=== PATIENT | female | born 1950 | race Caucasian/White ===

== ENCOUNTER 2017-01-24 14:52 | Emergency (ER) | payer OTHER, MEDICAID ==
[2017-01-24 15:09] VITALS: BP 142/71; BMI 29.9
--- NOTE | 2017-01-24 16:53 | DR.GENAD ---
HPI - PCP Primary Care Physician: [facility] IN [facility] - Complaint/Symptoms Chief Complaint Doctors Comments: Patient states that she has a history of cluster headaches. Her headache has been ongoing for four days. She also admits to midsternal pain radiating to left shoulder. Chief Complaint:: NAUSEA, HEADACHE AND EPIGASTRIC PAIN Self Treatment fo Chief Complaint: TYLENOL FOR THOMAS, NITRO FOR CP,PHENERGAN FOR NAUSEA BUT NONE OF THEM STAYED DOWN - Source History Provided: Patient - Mode of Arrival Mode of Arrival: Ambulatory - Timing Onset of Chief Complaint: 01/24/17 PMH - PMH Past Medical History: Yes Past Medical History: CHF, Hypertension Past Surgical History: Yes Surgical History: Appendectomy, Cholecystectomy, Ortho Surgery Past Surgical History Comment: PACE MAKER - Family History History of Family Medical Conditions: Yes Family Medical History: [place], Coronary Artery Disease - Social History Type of Tobacco Use: Cigarettes How many years tobacco product used: 30 Does any household member use tobacco: Yes Alcohol Use: None Do you use any recreational Drugs:: No Lives With: Family Lives Where: Home - infectious screening In the last 2 months have you had wt loss of >10#?: NO Have you had fever, night sweats or hemotysis?: No Have you traveled outside the country in the last 6 months?: No Isolation: Standard ROS - Review of Systems Eyes: No Symptoms Reported ENTM: No Symptoms Reported Respiratoy: No Symptoms Reported Cardiovascular: No Symptoms Reported Gastrointestinal/Abdominal: No Symptoms Reported Genitourinary: No Symptoms Reported Neurological: No Symptoms Reported Musculoskeletal: No Symptoms Reported Integumentary: No Symptoms Reported Hematologic/Lymphatic: No Symptoms Reported Endocrine: No Symptoms Reported Psychiatric: No Symptoms Reported All Other Systems: Reviewed and Negative PE - Vital Signs Vitals: Temperature 99 F Pulse Rate 75 Respiratory Rate 20 Blood Pressure 142/71 O2 Sat by Pulse Oximetry 98 - General Limitations: No Limitations General Appearance: Alert, In No Apparent Distress - Eyes Eye exam: Normal Appearance, PERRL, EOMI - ENT ENT Exam: Normal Exam External Ear Exam: Normal External Inspection TM/Canal Exam: Bilateral Normal Nose Exam: Normal Nose Exam Mouth Exam: Normal Inspection Throat Exam: Normal Inspection - Neck Neck Exam: Normal Inspection - Chest Chest Inspection: Normal Inspection, Symmetric Chest Wall Rise - Respiratory Respiratory Exam: Normal Lung Sounds Bilat Respiratory Exam: Bilateral Clear to Auscultation - Cardiovascular Cardiovascular Exam: Regular Rate, Normal Rhythm - Abdominal Exam Abdominal Exam: Normal Inspection, Normal Bowel Sounds Abdominal Tenderness: negative: RUQ, RLQ, LUQ, LLQ, Epigastrium, Suprapubic, Diffuse, Mild, Moderate, Severe, Other - Extremities Extremities Exam: Normal Inspection, Full ROM - Back Back Exam: Normal Inspection - Skin Skin Exam: Warm, Dry, Intact Course - Treatment Treatment: Morphine, oxygen - Reevaluation 1st: Improved ROR - Labs Reviewed Result Diagrams: 01/24/17 17:00 01/24/17 17:00 Laboratory: WBC 4.3 X10^3/uL (3.6-10.0) 01/24/17 17:00 RBC 4.15 X10^6/uL (3.5-5.4) 01/24/17 17:00 Hgb 12.2 g/dL (12.0-16.0) 01/24/17 17:00 Hct 36.1 % (36.0-47.0) 01/24/17 17:00 MCV 87.0 fL (80.0-100.0) 01/24/17 17:00 MCH 29.5 pg (27.0-34.0) 01/24/17 17:00 MCHC 34.0 g/dL (33.0-35.0) 01/24/17 17:00 RDW 13.6 % (11.6-16.5) 01/24/17 17:00 Plt Count 141 X10^3/uL (150.0-450.0) L 01/24/17 17:00 MPV 8.1 fL (7.4-11.0) 01/24/17 17:00 Neut % 59.4 % (42.0-75.0) 01/24/17 17:00 Lymph % 29.3 % (21.0-51.0) 01/24/17 17:00 [place] % 5.0 % (0.0-13.0) 01/24/17 17:00 Eos % 5.0 % (0.9-2.9) H 01/24/17 17:00 Baso % 1.3 % (0.2-1.0) H 01/24/17 17:00 Neut # 2.6 x10^3/uL (2.2-4.8) 01/24/17 17:00 Lymph # 1.3 X10^3/uL (1.3-2.9) 01/24/17 17:00 [place] # 0.2 x10^3/uL (0.3-0.8) L 01/24/17 17:00 Eos # 0.2 x10^3/uL (0.0-0.2) 01/24/17 17:00 Baso # 0.1 X10^3/uL (0.0-0.1) 01/24/17 17:00 Absolute Nucleated RBC 0.0 /100WBC 01/24/17 17:00 INR Target Range - 01/24/17 17:00 INR 1.40 (0.8-1.3) H 01/24/17 17:00 Sodium 142 mmol/L (136-145) 01/24/17 17:00 Corrected Sodium TNP 01/24/17 17:00 Potassium 3.4 mmol/L (3.5-5.1) L 01/24/17 17:00 Chloride 104 mmol/L (98-107) 01/24/17 17:00 Carbon Dioxide 31.0 mmol/L (21-32) 01/24/17 17:00 BUN 16 mg/dL (7-18) 01/24/17 17:00 Creatinine 1.21 mg/dL (0.55-1.02) H 01/24/17 17:00 Est GFR (MDRD) Af Amer 57 (>60) L 01/24/17 17:00 Est GFR (MDRD) Non-Af 47 (>60) L 01/24/17 17:00 Glucose 95 mg/dL (65-99) 01/24/17 17:00 Calcium 8.7 mg/dL (8.5-10.1) 01/24/17 17:00 Corrected Calcium TNP 01/24/17 17:00 Phosphorus 4.4 mg/dL (2.6-4.7) 01/24/17 17:00 Magnesium 1.9 mg/dL (1.7-2.9) 01/24/17 17:00 Total Bilirubin 0.30 mg/dL (0.2-1.0) 01/24/17 17:00 AST 20 Units/L (15-37) 01/24/17 17:00 ALT 24 Units/L (12-78) 01/24/17 17:00 Alkaline Phosphatase 84 Units/L (46-116) 01/24/17 17:00 Creatine Kinase 63 Units/L (26-192) 01/24/17 17:00 CK-MB (CK-2) < 1.0 ng/mL (0-4.0) 01/24/17 17:00 CK/CKMB % Calc 1.6 % (<4) 01/24/17 17:00 Troponin I 0.05 ng/mL (0-1.5) 01/24/17 17:00 Total Protein 7.5 g/dL (6.4-8.2) 01/24/17 17:00 Albumin 3.6 g/dL (3.4-5.0) 01/24/17 17:00 Globulin 3.9 g/dL (2.5-4.5) 01/24/17 17:00 Albumin/Globulin Ratio 0.9 Ratio (1.1-2.1) L 01/24/17 17:00 - EKG Rhythm: Paced - Diagnosis Discharge Problem: cluster headaceh Chest pain Qualifiers: Chest pain type: unspecified Qualified Code(s): R07.9 - Chest pain, unspecified - Discharge Plan Condition: Stable - Follow ups/Referrals Follow ups/Referrals: NFD,None [Primary Care Provider] - 3 days - Instructions
[2017-01-24] MEDS ORDERED: NITROSTAT SL PRN (16:56)
[2017-01-24] MEDS ORDERED: ASPIRIN ONE (16:59)
[2017-01-24] MEDS ORDERED: ASPIRIN PO SCH (17:00)
[2017-01-24 17:11] LABS: BASOPHILS # (AUTO) 0.1 X10^3/uL (0.0-0.1); BASOPHILS % (AUTO) 1.3 % (0.2-1.0); EOSINOPHILS # (AUTO) 0.2 x10^3/uL (0.0-0.2); HEMATOCRIT 36.1 % (36.0-47.0); HEMOGLOBIN 12.2 g/dL (12.0-16.0); LYMPHOCYTES # (AUTO) 1.3 X10^3/uL (1.3-2.9); LYMPHOCYTES % (AUTO) 29.3 % (21.0-51.0); MEAN CORPUSCULAR HEMOGLOBIN 29.5 pg (27.0-34.0); MEAN PLATELET VOLUME 8.1 fL (7.4-11.0); MONOCYTES # (AUTO) 0.2 x10^3/uL (0.3-0.8); NEUTROPHILS # (AUTO) 2.6 x10^3/uL (2.2-4.8); NEUTROPHILS % (AUTO) 59.4 % (42.0-75.0); PLATELET COUNT 141 X10^3/uL (150.0-450.0); RED BLOOD COUNT 4.15 X10^6/uL (3.5-5.4); RED CELL DISTRIBUTION WIDTH 13.6 % (11.6-16.5); WHITE BLOOD COUNT 4.3 X10^3/uL (3.6-10.0)
[2017-01-24 17:27] LABS: BLOOD UREA NITROGEN 16 mg/dL (7-18); CALCIUM 8.7 mg/dL (8.5-10.1); CHLORIDE 104 mmol/L (98-107); CREATININE 1.21 mg/dL (0.55-1.02); GLUCOSE 95 mg/dL (65-99); SODIUM 142 mmol/L (136-145); TROPONIN I 0.05 ng/mL (0-1.5); eGFR BLACK RACES 57 (>60); eGFR NON BLACK RACES 47 (>60)
[2017-01-24 17:31] LABS: ALANINE AMINOTRANSFERASE 24 Units/L (12-78); ALBUMIN 3.6 g/dL (3.4-5.0); ALKALINE PHOSPHATASE 84 Units/L (46-116); ASPARTATE AMINO TRANSFERASE 20 Units/L (15-37); CKMB % 1.6 % (<4); CREATINE KINASE 63 Units/L (26-192); CREATINE KINASE MB < 1.0 ng/mL (0-4.0); MAGNESIUM 1.9 mg/dL (1.7-2.9); PHOSPHORUS 4.4 mg/dL (2.6-4.7); TOTAL PROTEIN 7.5 g/dL (6.4-8.2)
[2017-01-24] MEDS ORDERED: MORPHINE SULFATE INJ 4 MG IVP ONE (17:40)
[2017-01-24] MEDS ORDERED: MORPHINE SULFATE INJ 4 MG ONE (17:45)
[2017-01-24] MEDS ORDERED: MORPHINE SULFATE INJ 2 MG IVP ONE (18:27)
[2017-01-24] MEDS ORDERED: MORPHINE SULFATE INJ 2 MG ONE (18:32)
[2017-01-24] MEDS ORDERED: ZOFRAN INJ 4 MG VIAL ONE (18:32)
[2017-01-24] MEDS ORDERED: ZOFRAN INJ 4 MG VIAL IVP ONE (18:38)
== END 2017-01-24 19:37 | disposition home or self-care (01) ==
LOC: ER 15:09
DX: R07.89 Other chest pain (principal); G44.009 Cluster headache syndrome, unspecified, not intractable
CPT/HCPCS: 36415; 80053; 82550; 82553; 83735; 84100; 84484; 85025; 85610; 93005; 93010; 96365; 96374; 96375; 99283; A4222; J2270; J2405

== ENCOUNTER 2017-01-30 13:10 | Emergency (ER) | payer OTHER, MEDICAID ==
[2017-01-30 13:16] VITALS: BP 142/68; BMI 29.9
[2017-01-30] MEDS ORDERED: MORPHINE SULFATE INJ 4 MG IM ONE (13:46)
[2017-01-30] MEDS ORDERED: ZOFRAN INJ 4 MG VIAL IM ONE (13:46)
--- NOTE | 2017-01-30 13:55 | DR.GENAD ---
HPI - PCP Primary Care Physician: ALISSA - Complaint/Symptoms Chief Complaint:: PT C/O BAD HEADACHES WITH INTERMITTEN CHEST PAIN. PT ALSO STATES SHE HAS BEEN HAVING NAUSEA. PT STATES SHE WAS JUST HERE FOR THE SAME REASON - Source History Provided: Patient - Mode of Arrival Mode of Arrival: Ambulatory - Timing Onset of Chief Complaint: 01/30/17 PMH - PMH Past Medical History: Yes Past Medical History: CHF, Headaches, Hypertension Past Surgical History: Yes Surgical History: Appendectomy, Cholecystectomy, Ortho Surgery - Family History History of Family Medical Conditions: Yes Family Medical History: [place], Coronary Artery Disease - Social History Does patient currently use any type of tobacco product: Yes Have you used tobacco products in the last 12 months: Yes Type of Tobacco Use: Cigarettes Does any household member use tobacco: Yes Alcohol Use: None Do you use any recreational Drugs:: No Lives With: Family Lives Where: Home - infectious screening In the last 2 months have you had wt loss of >10#?: NO Have you had fever, night sweats or hemotysis?: No Have you traveled outside the country in the last 6 months?: No Isolation: Standard PE - Vital Signs Vitals: Temperature 98.2 F Pulse Rate 69 Respiratory Rate 18 Blood Pressure 142/68 O2 Sat by Pulse Oximetry 99 - Discharge Plan Condition: Stable Prescriptions: Promethazine HCl [Phenergan Supp 25 mg] 25 mg [place] Q8H PRN #10 supp.rect PRN Reason: Nausea/Vomiting - Follow ups/Referrals Follow ups/Referrals: Radha ESCOBARc [Primary Care Provider] - 3 days - Instructions Instructions: Cluster Headache, [id number] Additional Instructions: RETURN TO ED IF WORSE. CONTINUE MEDS AT HOME.
[2017-01-30] MEDS ORDERED: ZOFRAN INJ 4 MG VIAL ONE (13:58)
[2017-01-30] MEDS ORDERED: MORPHINE SULFATE INJ 4 MG ONE (13:58)
== END 2017-01-30 14:39 | disposition home or self-care (01) ==
LOC: ER 13:23
DX: R51 Headache (principal)
CPT/HCPCS: 96372; 99282; J2270; J2405

== ENCOUNTER 2017-02-07 13:55 | Inpatient (IN) | payer OTHER, MEDICAID ==
[2017-02-07 14:03] VITALS: BMI 30.7
--- NOTE | 2017-02-07 16:46 | DR.URIAD ---
HPI - Time Seen Time seen: 16:42 - PCP Primary Care Physician: PEDRO LUNA PHYSICIAN - HPI Comment HPI Comment: cough - Complaint Chief Complaint Doctors Comments: Cough x 2-3 days. She dyspnea also. She denies fever of chills. She had quit smoking 1 month ago. Chief Complaint:: COUGH, SOB - Reviewed Nurses Notes Reviewed: Yes - Source History Provided: Patient - Mode of Arrival Mode of Arrival: Ambulatory - Timing Onset of Chief Complaint: 02/04/17 - Context Recent Treated Infections: None History of Respiratory: None - Quality Quality of Cough: Nonproductive Shortness of Breath: Moderate - Associated Signs and Symptoms Other Signs and Symptoms: Cough, Nausea, Vomitting PMH - PMH Past Medical History: Yes Past Medical History: Arthritis, CHF, Hypertension, Hypothyroidism Past Surgical History: Yes Surgical History: Appendectomy, Cholecystectomy Past Surgical History Comment: KNEE SURGERY - Family History History of Family Medical Conditions: No Family Medical History: [place], Coronary Artery Disease - Social History Does patient currently use any type of tobacco product: No Have you used tobacco products in the last 12 months: Yes (quit 1 month ago) Type of Tobacco Use: Cigarettes How many years tobacco product used: 30 Does any household member use tobacco: No Alcohol Use: None Do you use any recreational Drugs:: No Lives With: Family Lives Where: Home - infectious screening In the last 2 months have you had wt loss of >10#?: NO Have you had fever, night sweats or hemotysis?: No Have you traveled outside the country in the last 6 months?: No Isolation: Standard ROS - Review of Systems Constitutional: No Symptoms Reported Eyes: No Symptoms Reported ENTM: No Symptoms Reported Respiratoy: No Symptoms Reported, Non-Productive Cough, Short of Breath Cardiovascular: No Symptoms Reported, Edema Gastrointestinal/Abdominal: See HPI, Nausea, Vomiting Genitourinary: No Symptoms Reported Neurological: No Symptoms Reported Musculoskeletal: No Symptoms Reported Integumentary: No Symptoms Reported Hematologic/Lymphatic: No Symptoms Reported Endocrine: No Symptoms Reported Psychiatric: No Symptoms Reported All Other Systems: Reviewed and Negative PE - Vital Signs Vitals: Temperature 98.9 F Pulse Rate [Apical] 97 Pulse Rate 74 Respiratory Rate 16 Blood Pressure [Left Arm] 138/72 Blood Pressure 139/61 O2 Sat by Pulse Oximetry 97 - General Limitations: No Limitations General Appearance: Alert, In No Apparent Distress - Head Head Exam: Normal Inspection - Eyes Eye exam: Normal Appearance - ENT ENT Exam: Normal Exam External Ear Exam: Normal External Inspection TM/Canal Exam: Bilateral Normal Nose Exam: Normal Nose Exam Nasal Speculum Exam: Bilateral Normal Mouth Exam: Normal Inspection Throat Exam: Normal Inspection - Neck Neck Exam: Normal Inspection - Chest Chest Inspection: Normal Inspection - Respiratory Respiratory Exam: Bilateral Rhonchi, Bilateral Crackles - Cardiovascular Cardiovascular Exam: Regular Rate, Normal Rhythm - Abdominal Exam Abdominal Exam: Normal Inspection, Normal Bowel Sounds, Soft - Extremeties Extremities Exam: Normal Inspection - Back Back Exam: Normal Inspection - Neurologic Neurological Exam: Alert, Oriented X3 - Psychiatric Psychiatric Exam: Normal Affect, Normal Mood - Skin Skin Exam: Warm, Dry, Intact, Normal Color ROR - Labs Reviewed Result Diagrams: 02/07/17 16:34 02/07/17 16:34 Laboratory: WBC 3.9 X10^3/uL (3.6-10.0) 02/07/17 16:34 RBC 4.31 X10^6/uL (3.5-5.4) 02/07/17 16:34 Hgb 12.8 g/dL (12.0-16.0) 02/07/17 16:34 Hct 37.0 % (36.0-47.0) 02/07/17 16:34 MCV 85.8 fL (80.0-100.0) 02/07/17 16:34 MCH 29.8 pg (27.0-34.0) 02/07/17 16:34 MCHC 34.7 g/dL (33.0-35.0) 02/07/17 16:34 RDW 13.9 % (11.6-16.5) 02/07/17 16:34 Plt Count 141 X10^3/uL (150.0-450.0) L 02/07/17 16:34 MPV 8.3 fL (7.4-11.0) 02/07/17 16:34 Neut % 51.8 % (42.0-75.0) 02/07/17 16:34 Lymph % 37.3 % (21.0-51.0) 02/07/17 16:34 [place] % 4.4 % (0.0-13.0) 02/07/17 16:34 Eos % 5.2 % (0.9-2.9) H 02/07/17 16:34 Baso % 1.3 % (0.2-1.0) H 02/07/17 16:34 Neut # 2.0 x10^3/uL (2.2-4.8) L 02/07/17 16:34 Lymph # 1.5 X10^3/uL (1.3-2.9) 02/07/17 16:34 [place] # 0.2 x10^3/uL (0.3-0.8) L 02/07/17 16:34 Eos # 0.2 x10^3/uL (0.0-0.2) 02/07/17 16:34 Baso # 0.1 X10^3/uL (0.0-0.1) 02/07/17 16:34 Absolute Nucleated RBC 0.0 /100WBC 02/07/17 16:34 Sample Site [facility] 02/07/17 19:52 ABG pH 7.480 (7.35-7.45) H 02/07/17 19:52 ABG pCO2 34.0 mmHg (35.0-45.0) L 02/07/17 19:52 ABG pO2 84.0 mmHg (80.0-100.0) 02/07/17 19:52 ABG HCO3 25.3 mmol/L (22-26) 02/07/17 19:52 ABG O2 Saturation 97.0 % (90-100) 02/07/17 19:52 ABG Base Excess 2.1 mmol/L (-2.0-2.0) H 02/07/17 19:52 [place] Test Na 02/07/17 19:52 A-a Gradient 73.0 mmHg 02/07/17 19:52 FiO2 28.000 02/07/17 19:52 Blood Gas Comments [place] Maria abg well-mtf 02/07/17 19:52 Sodium 143 mmol/L (136-145) 02/07/17 16:34 Corrected Sodium TNP 02/07/17 16:34 Potassium 3.5 mmol/L (3.5-5.1) 02/07/17 16:34 Chloride 105 mmol/L (98-107) 02/07/17 16:34 Carbon Dioxide 30.8 mmol/L (21-32) 02/07/17 16:34 BUN 13 mg/dL (7-18) 02/07/17 16:34 Creatinine 1.10 mg/dL (0.55-1.02) H 02/07/17 16:34 Est GFR (MDRD) Af Amer > 60 (>60) 02/07/17 16:34 Est GFR (MDRD) Non-Af 52 (>60) L 02/07/17 16:34 Glucose 101 mg/dL (65-99) H 02/07/17 16:34 Calcium 8.9 mg/dL (8.5-10.1) 02/07/17 16:34 Corrected Calcium TNP 02/07/17 16:34 Total Bilirubin 0.30 mg/dL (0.2-1.0) 02/07/17 16:34 AST 23 Units/L (15-37) 02/07/17 16:34 ALT 25 Units/L (12-78) 02/07/17 16:34 Alkaline Phosphatase 78 Units/L (46-116) 02/07/17 16:34 Total Protein 7.7 g/dL (6.4-8.2) 02/07/17 16:34 Albumin 3.7 g/dL (3.4-5.0) 02/07/17 16:34 Globulin 4.0 g/dL (2.5-4.5) 02/07/17 16:34 Albumin/Globulin Ratio 0.9 Ratio (1.1-2.1) L 02/07/17 16:34 Streptococcus Screen Negative (NEGATIVE) 02/07/17 16:28 - Other Results Comments: ABG on 2L N/C: 7.480/34.0/84.0/97% - XRAY XRAY Interpreted by: Radiologist (A PM, subcutaneously infraclavicularly (Left) . ), Both (A PPM, Lt. infraclavicular region) - EKG Rate: 65 [place]: Normal Rhythm: Paced Block: None - Diagnosis Discharge Problem: COPD exacerbation, Syncopal episodes, Thrombocytopenia - Discharge Plan Disposition: ADMITTED INPATIENT Condition: Stable - Follow ups/Referrals Follow ups/Referrals: NFD,None [Primary Care Provider] - 3 days - Instructions Instructions: Syncope, [id number]
[2017-02-07] MEDS ORDERED: DUONEB 0.5 MG/3 MG NEB ONE (16:50)
[2017-02-07] MEDS ORDERED: SOLU-Medrol 125 MG VIAL IVP ONE (16:50)
[2017-02-07] MEDS ORDERED: ZITHROMAX INJ 500 MG VIAL 500 MG in NS 250 ML IV 250 ML IV SCH (16:51)
[2017-02-07 16:53] LABS: BASOPHILS # (AUTO) 0.1 X10^3/uL (0.0-0.1); BASOPHILS % (AUTO) 1.3 % (0.2-1.0); EOSINOPHILS # (AUTO) 0.2 x10^3/uL (0.0-0.2); EOSINOPHILS % (AUTO) 5.2 % (0.9-2.9); HEMOGLOBIN 12.8 g/dL (12.0-16.0); LYMPHOCYTES # (AUTO) 1.5 X10^3/uL (1.3-2.9); LYMPHOCYTES % (AUTO) 37.3 % (21.0-51.0); MEAN CORPUSCULAR HEMOGLOBIN 29.8 pg (27.0-34.0); MEAN CORPUSCULAR HGB CONC 34.7 g/dL (33.0-35.0); MEAN CORPUSCULAR VOLUME 85.8 fL (80.0-100.0); MEAN PLATELET VOLUME 8.3 fL (7.4-11.0); MONOCYTES # (AUTO) 0.2 x10^3/uL (0.3-0.8); MONOCYTES % (AUTO) 4.4 % (0.0-13.0); NEUTROPHILS % (AUTO) 51.8 % (42.0-75.0); PLATELET COUNT 141 X10^3/uL (150.0-450.0); RED BLOOD COUNT 4.31 X10^6/uL (3.5-5.4); RED CELL DISTRIBUTION WIDTH 13.9 % (11.6-16.5); WHITE BLOOD COUNT 3.9 X10^3/uL (3.6-10.0)
[2017-02-07 17:06] LABS: ALANINE AMINOTRANSFERASE 25 Units/L (12-78); ALBUMIN 3.7 g/dL (3.4-5.0); ALKALINE PHOSPHATASE 78 Units/L (46-116); ASPARTATE AMINO TRANSFERASE 23 Units/L (15-37); BLOOD UREA NITROGEN 13 mg/dL (7-18); CALCIUM 8.9 mg/dL (8.5-10.1); CARBON DIOXIDE 30.8 mmol/L (21-32); CHLORIDE 105 mmol/L (98-107); SODIUM 143 mmol/L (136-145); TOTAL PROTEIN 7.7 g/dL (6.4-8.2); eGFR BLACK RACES > 60 (>60); eGFR NON BLACK RACES 52 (>60)
[2017-02-07] MEDS ORDERED: ZITHROMAX INJ 500 MG VIAL IV ONE (17:14)
[2017-02-07] MEDS ORDERED: SOLU-Medrol 125 MG VIAL ONE (17:14)
[2017-02-07] MEDS ORDERED: NS 250 ML IV 250 ML IV ONE (17:16)
--- NOTE | 2017-02-07 17:16 | RAD ---
HISTORY: Cough. Study: Single-view chest. Comparison: None. Findings: The trachea is midline. There is a dual lead cardiac pacing device on the left. The cardiac silhouett e is within normal limits. The lungs are clear without focal consolidation, pleural effusion or pneum othorax. The bony thorax is grossly unremarkable. IMPRESSION: No acute cardiopulmonary disease. Reported By:
[2017-02-07 20:01] LABS: ABG BASE EXCESS 2.1 mmol/L (-2.0-2.0); ABG HCO3 25.3 mmol/L (22-26)
[2017-02-07] MEDS ORDERED: TORADOL 30 MG VIAL IVP ONE ×2 (21:13)
[2017-02-07] MEDS ORDERED: TORADOL 30 MG VIAL ONE (21:16)
[2017-02-07] MEDS: NS 1000 ML 1,000 ML IV SCH (21:18)
[2017-02-07] MEDS: SOLU-Medrol 40 MG VIAL IVP SCH (22:12)
[2017-02-07] MEDS: ROBITUSSIN DM PO PRN (22:32)
[2017-02-07] MEDS: SINGULAIR TAB 10 MG PO SCH (22:33)
[2017-02-07] MEDS: NORCO 5/325 MG TAB PO PRN (22:33)
[2017-02-07] MEDS: MORPHINE SULFATE INJ 2 MG INJ IVP PRN (23:57)
[2017-02-08] MEDS: DUONEB 0.5 MG/3 MG NEB SCH ×7 (01:23→21:07)
[2017-02-08] MEDS: ROBITUSSIN DM PO PRN ×3 (02:40→21:24)
[2017-02-08] MEDS: MORPHINE SULFATE INJ 2 MG INJ IVP PRN ×4 (04:47→21:25)
[2017-02-08 05:30] LABS: BLOOD UREA NITROGEN 11 mg/dL (7-18); CALCIUM 8.6 mg/dL (8.5-10.1); CARBON DIOXIDE 26.2 mmol/L (21-32); CHLORIDE 106 mmol/L (98-107); COR NA(FOR HYPERGLY) 143 mmol/L (136-145); CREATININE 1.02 mg/dL (0.55-1.02); SODIUM 141 mmol/L (136-145); eGFR BLACK RACES > 60 (>60); eGFR NON BLACK RACES 57 (>60)
[2017-02-08 05:38] LABS: BASOPHILS % (AUTO) 0.3 % (0.2-1.0); EOSINOPHILS % (AUTO) 0.1 % (0.9-2.9); HEMATOCRIT 31.8 % (36.0-47.0); LYMPHOCYTES # (AUTO) 0.5 X10^3/uL (1.3-2.9); MEAN CORPUSCULAR HEMOGLOBIN 29.9 pg (27.0-34.0); MEAN CORPUSCULAR HGB CONC 34.5 g/dL (33.0-35.0); MEAN CORPUSCULAR VOLUME 86.5 fL (80.0-100.0); MEAN PLATELET VOLUME 8.6 fL (7.4-11.0); MONOCYTES # (AUTO) 0.1 x10^3/uL (0.3-0.8); MONOCYTES % (AUTO) 2.4 % (0.0-13.0); NEUTROPHILS # (AUTO) 1.9 x10^3/uL (2.2-4.8); NEUTROPHILS % (AUTO) 76.2 % (42.0-75.0); PLATELET COUNT 107 X10^3/uL (150.0-450.0); RED BLOOD COUNT 3.67 X10^6/uL (3.5-5.4); RED CELL DISTRIBUTION WIDTH 13.8 % (11.6-16.5); WHITE BLOOD COUNT 2.5 X10^3/uL (3.6-10.0)
[2017-02-08] MEDS: SOLU-Medrol 40 MG VIAL IVP SCH ×3 (05:40→21:23)
[2017-02-08] MEDS: ZITHROMAX INJ 500 MG VIAL 500 MG in NS 250 ML IV 250 ML IV SCH (08:20)
[2017-02-08] MEDS ORDERED: MAALOX or MYLANTA PO PRN (14:27)
[2017-02-08] MEDS: PHENERGAN INJ 25 MG IV PRN (14:33)
[2017-02-08] MEDS: NS 1000 ML 1,000 ML IV SCH (21:22)
[2017-02-08] MEDS: SINGULAIR TAB 10 MG PO SCH (21:23)
[2017-02-08] MEDS: NYSTATIN POWDER TOP SCH ×2 (21:27→21:36)
[2017-02-08] MEDS: PROTONIX TAB 40 MG PO SCH (21:36)
[2017-02-09] MEDS: DUONEB 0.5 MG/3 MG NEB SCH ×6 (01:00→21:12)
[2017-02-09] MEDS: MORPHINE SULFATE INJ 2 MG INJ IVP PRN ×2 (04:32→22:55)
[2017-02-09] MEDS: PHENERGAN INJ 25 MG IV PRN ×2 (04:32→21:28)
[2017-02-09] MEDS: ROBITUSSIN DM PO PRN ×2 (04:36→21:27)
[2017-02-09 05:28] LABS: BASOPHILS % (AUTO) 0.3 % (0.2-1.0); HEMOGLOBIN 10.5 g/dL (12.0-16.0); LYMPHOCYTES # (AUTO) 0.4 X10^3/uL (1.3-2.9); LYMPHOCYTES % (AUTO) 6.3 % (21.0-51.0); MEAN CORPUSCULAR HEMOGLOBIN 29.5 pg (27.0-34.0); MEAN CORPUSCULAR HGB CONC 33.8 g/dL (33.0-35.0); MEAN CORPUSCULAR VOLUME 87.3 fL (80.0-100.0); MONOCYTES # (AUTO) 0.2 x10^3/uL (0.3-0.8); MONOCYTES % (AUTO) 2.7 % (0.0-13.0); NEUTROPHILS # (AUTO) 5.2 x10^3/uL (2.2-4.8); NEUTROPHILS % (AUTO) 90.7 % (42.0-75.0); PLATELET COUNT 129 X10^3/uL (150.0-450.0); RED BLOOD COUNT 3.55 X10^6/uL (3.5-5.4); RED CELL DISTRIBUTION WIDTH 14.1 % (11.6-16.5); WHITE BLOOD COUNT 5.7 X10^3/uL (3.6-10.0)
[2017-02-09 05:34] LABS: ALANINE AMINOTRANSFERASE 21 Units/L (12-78); ALBUMIN 3.1 g/dL (3.4-5.0); ALKALINE PHOSPHATASE 59 Units/L (46-116); ASPARTATE AMINO TRANSFERASE 15 Units/L (15-37); BLOOD UREA NITROGEN 17 mg/dL (7-18); CALCIUM 8.8 mg/dL (8.5-10.1); CARBON DIOXIDE 27.4 mmol/L (21-32); CHLORIDE 109 mmol/L (98-107); COR CA(FOR HYPOALB) 9.5 mg/dL (8.5-10.1); COR NA(FOR HYPERGLY) 146 mmol/L (136-145); SODIUM 144 mmol/L (136-145); TOTAL PROTEIN 6.6 g/dL (6.4-8.2); eGFR BLACK RACES > 60 (>60); eGFR NON BLACK RACES 59 (>60)
[2017-02-09] MEDS ORDERED: POTASSIUM CHLORIDE LIQ 20 MEQ UDC PO PRN (05:39)
[2017-02-09] MEDS ORDERED: K-DUR TAB 20 MEQ PO PRN (05:39)
[2017-02-09] MEDS ORDERED: K-RIDER 10 MEQ/NS 100 ML 10 MEQ/100 ML BAG IV PRN (05:39)
[2017-02-09] MEDS ORDERED: K-LYTE EFFERVESCENT PO PRN (05:39)
[2017-02-09 05:50] LABS: BAND NEUTROPHILS % 14 % (0-10); PLATELET MORPHOLOGY COMMENT NORMAL (NORMAL)
[2017-02-09] MEDS: SOLU-Medrol 40 MG VIAL IVP SCH ×3 (06:03→21:50)
[2017-02-09] MEDS: NYSTATIN POWDER TOP SCH ×2 (09:25→21:25)
[2017-02-09] MEDS: PROTONIX TAB 40 MG PO SCH (09:25)
[2017-02-09] MEDS: ZITHROMAX INJ 500 MG VIAL 500 MG in NS 250 ML IV 250 ML IV SCH (10:33)
[2017-02-09] MEDS ORDERED: PHENERGAN SUPP 25 MG PR PRN (11:00)
[2017-02-09] MEDS: HYDROCHLOROTHIAZIDE 12.5 MG CAP PO SCH (15:22)
[2017-02-09] MEDS: NexIUM PO SCH (15:22)
[2017-02-09] MEDS: SINGULAIR TAB 10 MG PO SCH (21:25)
[2017-02-09] MEDS: NORCO 5/325 MG TAB PO PRN (21:26)
[2017-02-09] MEDS: NS 1000 ML 1,000 ML IV SCH (22:55)
[2017-02-10] MEDS: DUONEB 0.5 MG/3 MG NEB SCH ×6 (01:26→20:36)
[2017-02-10] MEDS: TUSSIONEX PENNKINETIC SUSP PO PRN (02:04)
[2017-02-10] MEDS: NORCO 5/325 MG TAB PO PRN (03:35)
[2017-02-10 05:23] LABS: BASOPHILS % (AUTO) 0 % (0.2-1.0); HEMATOCRIT 30.1 % (36.0-47.0); HEMOGLOBIN 10.3 g/dL (12.0-16.0); LYMPHOCYTES # (AUTO) 0.4 X10^3/uL (1.3-2.9); LYMPHOCYTES % (AUTO) 6.2 % (21.0-51.0); MEAN CORPUSCULAR HEMOGLOBIN 30.1 pg (27.0-34.0); MEAN CORPUSCULAR HGB CONC 34.1 g/dL (33.0-35.0); MEAN CORPUSCULAR VOLUME 88.2 fL (80.0-100.0); MONOCYTES # (AUTO) 0.1 x10^3/uL (0.3-0.8); MONOCYTES % (AUTO) 1.5 % (0.0-13.0); NEUTROPHILS # (AUTO) 5.8 x10^3/uL (2.2-4.8); NEUTROPHILS % (AUTO) 92.3 % (42.0-75.0); PLATELET COUNT 137 X10^3/uL (150.0-450.0); RED BLOOD COUNT 3.41 X10^6/uL (3.5-5.4); RED CELL DISTRIBUTION WIDTH 14.4 % (11.6-16.5); WHITE BLOOD COUNT 6.3 X10^3/uL (3.6-10.0)
[2017-02-10] MEDS: SOLU-Medrol 40 MG VIAL IVP SCH ×3 (05:25→21:14)
[2017-02-10] MEDS: MORPHINE SULFATE INJ 2 MG INJ IVP PRN ×4 (05:32→22:55)
[2017-02-10 05:36] LABS: ALANINE AMINOTRANSFERASE 21 Units/L (12-78); ALKALINE PHOSPHATASE 55 Units/L (46-116); ASPARTATE AMINO TRANSFERASE 18 Units/L (15-37); BLOOD UREA NITROGEN 14 mg/dL (7-18); CALCIUM 8.6 mg/dL (8.5-10.1); CARBON DIOXIDE 23.8 mmol/L (21-32); CHLORIDE 110 mmol/L (98-107); COR CA(FOR HYPOALB) 9.4 mg/dL (8.5-10.1); COR NA(FOR HYPERGLY) 144 mmol/L (136-145); CREATININE 1.06 mg/dL (0.55-1.02); SODIUM 143 mmol/L (136-145); TOTAL PROTEIN 6.3 g/dL (6.4-8.2); eGFR BLACK RACES > 60 (>60); eGFR NON BLACK RACES 55 (>60)
[2017-02-10 06:09] LABS: BAND NEUTROPHILS % 5 % (0-10); PLATELET MORPHOLOGY COMMENT NORMAL (NORMAL)
--- NOTE | 2017-02-10 06:26 | RAD ---
HISTORY: Shortness of breath Study: Chest AP portable Comparison: February 07, 2017 Findings: The trachea is midline. The cardiac silhouette is unremarkable. The aorta is calcified. The lungs ar e clear without focal infiltrate or effusion. There is a small focus of subsegmental atelectasis in t he left lung base. The bony thorax is unremarkable. There is a pacemaker present on the left obscuri ng a portion of the left mid lung. IMPRESSION: 1. No acute cardiopulmonary disease. Reported By:
[2017-02-10] MEDS: HYDROCHLOROTHIAZIDE 12.5 MG CAP PO SCH (09:57)
[2017-02-10] MEDS: NexIUM PO SCH (09:57)
[2017-02-10] MEDS: XARELTO PO SCH (09:57)
[2017-02-10] MEDS: ZITHROMAX INJ 500 MG VIAL 500 MG in NS 250 ML IV 250 ML IV SCH (09:59)
[2017-02-10] MEDS: NYSTATIN POWDER TOP SCH ×2 (10:12→21:15)
[2017-02-10 10:48] LABS: CKMB % 1.3 % (<4); CREATINE KINASE MB 1.1 ng/mL (0-4.0); TROPONIN I 0.08 ng/mL (0-1.5)
[2017-02-10] MEDS: PHENERGAN INJ 25 MG IV PRN ×2 (11:19→18:20)
[2017-02-10] MEDS ORDERED: SALINE 3% 15 ML NEB TX ONE (14:00)
[2017-02-10] MEDS: SINGULAIR TAB 10 MG PO SCH (21:14)
[2017-02-10] MEDS: NS 1000 ML 1,000 ML IV SCH (21:15)
[2017-02-10] MEDS: LEVSIN/MAALOX/LIDOC VISC PO PRN (22:55)
[2017-02-11] MEDS: DUONEB 0.5 MG/3 MG NEB SCH ×6 (00:28→20:40)
[2017-02-11] MEDS: NS 1000 ML 1,000 ML IV SCH ×2 (01:24→22:42)
[2017-02-11] MEDS: MORPHINE SULFATE INJ 2 MG INJ IVP PRN ×3 (03:38→21:32)
[2017-02-11] MEDS: PHENERGAN INJ 25 MG IV PRN ×2 (03:39→21:33)
[2017-02-11 06:12] LABS: BASOPHILS % (AUTO) 0 % (0.2-1.0); EOSINOPHILS % (AUTO) 0.1 % (0.9-2.9); HEMATOCRIT 30.3 % (36.0-47.0); HEMOGLOBIN 10.4 g/dL (12.0-16.0); LYMPHOCYTES # (AUTO) 0.4 X10^3/uL (1.3-2.9); LYMPHOCYTES % (AUTO) 9.6 % (21.0-51.0); MEAN CORPUSCULAR HEMOGLOBIN 29.8 pg (27.0-34.0); MEAN CORPUSCULAR HGB CONC 34.1 g/dL (33.0-35.0); MEAN CORPUSCULAR VOLUME 87.2 fL (80.0-100.0); MEAN PLATELET VOLUME 8.9 fL (7.4-11.0); MONOCYTES # (AUTO) 0.1 x10^3/uL (0.3-0.8); MONOCYTES % (AUTO) 2.9 % (0.0-13.0); NEUTROPHILS # (AUTO) 3.6 x10^3/uL (2.2-4.8); NEUTROPHILS % (AUTO) 87.4 % (42.0-75.0); PLATELET COUNT 133 X10^3/uL (150.0-450.0); RED BLOOD COUNT 3.48 X10^6/uL (3.5-5.4); RED CELL DISTRIBUTION WIDTH 14.2 % (11.6-16.5); WHITE BLOOD COUNT 4.1 X10^3/uL (3.6-10.0)
[2017-02-11 06:34] LABS: CALCIUM 8.8 mg/dL (8.5-10.1); CARBON DIOXIDE 26.4 mmol/L (21-32); COR CA(FOR HYPOALB) 9.6 mg/dL (8.5-10.1); CREATININE 1.17 mg/dL (0.55-1.02); TOTAL PROTEIN 6.4 g/dL (6.4-8.2)
[2017-02-11] MEDS: HYDROCHLOROTHIAZIDE 12.5 MG CAP PO SCH (09:59)
[2017-02-11] MEDS: NexIUM PO SCH (09:59)
[2017-02-11] MEDS: XARELTO PO SCH (09:59)
[2017-02-11] MEDS: NYSTATIN POWDER TOP SCH ×2 (10:01→21:30)
[2017-02-11] MEDS: ZITHROMAX INJ 500 MG VIAL 500 MG in NS 250 ML IV 250 ML IV SCH (10:16)
[2017-02-11] MEDS ORDERED: NS 100 ML IV 100 ML IV ONE (16:54)
--- NOTE | 2017-02-11 18:50 | CT ---
CT ANGIOGRAPHY OF THE CHEST CLINICAL HISTORY: 67-year-old female with shortness of breath. COMPARISON: None. TECHNIQUE: CT angiogram of the chest was performed following the uncomplicated administration of 75 m L Omnipaque 350. Coronal and Sagittal reformats provided. MIP reformats are submitted for review. FINDINGS: No pulmonary embolus is seen. There is no thoracic aortic dissection. The heart is normal in size and there is no pericardial effusion. There is no axillary or mediastina l lymphadenopathy. Left chest wall AICD with leads terminating in the right atrium and ventricle. Evaluation of the lung parenchyma demonstrates no pulmonary nodules, masses, or airspace opacities. T he trachea and mainstem bronchi are patent. There is no pleural effusion or pneumothorax. Partially imaged right infrarenal IVC filter in good position. Status post cholecystectomy. Remaining imaged upper abdomen is unremarkable. Mild scattered calcific atherosclerotic plaque of the aorta and its branches. Soft tissues are normal. Sclerosis anterosuperior endplate T12 consistent with degenerative change. IMPRESSION: 1. No pulmonary embolus. Reported By:
[2017-02-11] MEDS: SINGULAIR TAB 10 MG PO SCH (21:30)
[2017-02-12] MEDS: DUONEB 0.5 MG/3 MG NEB SCH ×6 (01:35→20:12)
[2017-02-12] MEDS: MORPHINE SULFATE INJ 2 MG INJ IVP PRN ×2 (02:54→11:45)
[2017-02-12] MEDS: LEVSIN/MAALOX/LIDOC VISC PO PRN (02:55)
[2017-02-12 05:36] LABS: BASOPHILS % (AUTO) 0.1 % (0.2-1.0); EOSINOPHILS % (AUTO) 0.6 % (0.9-2.9); HEMATOCRIT 29.1 % (36.0-47.0); HEMOGLOBIN 10.1 g/dL (12.0-16.0); LYMPHOCYTES % (AUTO) 33.7 % (21.0-51.0); MEAN CORPUSCULAR HEMOGLOBIN 30.2 pg (27.0-34.0); MEAN CORPUSCULAR HGB CONC 34.6 g/dL (33.0-35.0); MEAN CORPUSCULAR VOLUME 87.4 fL (80.0-100.0); MEAN PLATELET VOLUME 8.3 fL (7.4-11.0); MONOCYTES # (AUTO) 0.1 x10^3/uL (0.3-0.8); MONOCYTES % (AUTO) 4.3 % (0.0-13.0); NEUTROPHILS # (AUTO) 1.8 x10^3/uL (2.2-4.8); NEUTROPHILS % (AUTO) 61.3 % (42.0-75.0); PLATELET COUNT 106 X10^3/uL (150.0-450.0); RED BLOOD COUNT 3.33 X10^6/uL (3.5-5.4); RED CELL DISTRIBUTION WIDTH 14.3 % (11.6-16.5)
[2017-02-12 06:23] LABS: ALANINE AMINOTRANSFERASE 147 Units/L (12-78); ALBUMIN 2.8 g/dL (3.4-5.0); ALKALINE PHOSPHATASE 51 Units/L (46-116); ASPARTATE AMINO TRANSFERASE 125 Units/L (15-37); BLOOD UREA NITROGEN 14 mg/dL (7-18); CALCIUM 7.9 mg/dL (8.5-10.1); CHLORIDE 108 mmol/L (98-107); COR CA(FOR HYPOALB) 8.9 mg/dL (8.5-10.1); CREATININE 1.17 mg/dL (0.55-1.02); SODIUM 142 mmol/L (136-145); TOTAL PROTEIN 5.5 g/dL (6.4-8.2); eGFR BLACK RACES 59 (>60); eGFR NON BLACK RACES 49 (>60)
[2017-02-12 06:43] LABS: BAND NEUTROPHILS % 4 % (0-10); PLATELET MORPHOLOGY COMMENT NORMAL (NORMAL)
[2017-02-12] MEDS ORDERED: PATIENT'S HOME MEDICATION (Potassium Chloride [Potassium Chloride] 10 MEQ) PO SCH (09:00)
[2017-02-12] MEDS ORDERED: PATIENT'S HOME MEDICATION (Losartan Potassium [Losartan Potassium] 25 MG) PO SCH (09:00)
[2017-02-12] MEDS: ZITHROMAX INJ 500 MG VIAL 500 MG in NS 250 ML IV 250 ML IV SCH (10:24)
[2017-02-12] MEDS: CLARITIN PO SCH (10:25)
[2017-02-12] MEDS: SYNTHROID 75 mcg TAB PO SCH (10:25)
[2017-02-12] MEDS: HYDROCHLOROTHIAZIDE 12.5 MG CAP PO SCH (10:25)
[2017-02-12] MEDS: ZANTAC PO SCH ×2 (10:25→21:10)
[2017-02-12] MEDS: XARELTO PO SCH (10:26)
[2017-02-12] MEDS: COZAAR PO SCH (10:26)
[2017-02-12] MEDS: MICRO K EXTEN CAP 10 MEQ PO SCH (10:26)
[2017-02-12] MEDS: LINZESS PO SCH (10:26)
[2017-02-12] MEDS: NexIUM PO SCH (10:26)
[2017-02-12] MEDS: NYSTATIN POWDER TOP SCH ×2 (10:27→21:12)
[2017-02-12] MEDS ORDERED: DIPRIVAN VIAL 20 ML ONE (12:00)
[2017-02-12] MEDS: ZOFRAN INJ 4 MG VIAL IVP PRN ×2 (13:49→21:09)
[2017-02-12] MEDS ORDERED: REQUIP PO SCH (21:00)
[2017-02-12] MEDS ORDERED: LIPITOR TAB 40 MG PO SCH (21:00)
[2017-02-12] MEDS: TUSSIONEX PENNKINETIC SUSP PO PRN (21:09)
[2017-02-12] MEDS: NORCO 5/325 MG TAB PO PRN (21:09)
[2017-02-12] MEDS: SINGULAIR TAB 10 MG PO SCH (21:10)
[2017-02-12] MEDS: NS 1000 ML 1,000 ML IV SCH (21:12)
[2017-02-13] MEDS: DUONEB 0.5 MG/3 MG NEB SCH ×4 (00:06→12:04)
[2017-02-13] MEDS: MORPHINE SULFATE INJ 2 MG INJ IVP PRN (00:58)
[2017-02-13 06:19] LABS: BASOPHILS % (AUTO) 0.1 % (0.2-1.0); EOSINOPHILS # (AUTO) 0.1 x10^3/uL (0.0-0.2); EOSINOPHILS % (AUTO) 3.6 % (0.9-2.9); HEMOGLOBIN 10.2 g/dL (12.0-16.0); LYMPHOCYTES % (AUTO) 29.2 % (21.0-51.0); MEAN CORPUSCULAR HEMOGLOBIN 29.9 pg (27.0-34.0); MEAN CORPUSCULAR HGB CONC 33.8 g/dL (33.0-35.0); MEAN CORPUSCULAR VOLUME 88.2 fL (80.0-100.0); MEAN PLATELET VOLUME 8.3 fL (7.4-11.0); MONOCYTES # (AUTO) 0.2 x10^3/uL (0.3-0.8); MONOCYTES % (AUTO) 4.3 % (0.0-13.0); NEUTROPHILS # (AUTO) 2.2 x10^3/uL (2.2-4.8); NEUTROPHILS % (AUTO) 62.8 % (42.0-75.0); PLATELET COUNT 105 X10^3/uL (150.0-450.0); RED CELL DISTRIBUTION WIDTH 14.3 % (11.6-16.5); WHITE BLOOD COUNT 3.5 X10^3/uL (3.6-10.0)
[2017-02-13 06:28] LABS: ALANINE AMINOTRANSFERASE 107 Units/L (12-78); ALBUMIN 2.6 g/dL (3.4-5.0); ALKALINE PHOSPHATASE 53 Units/L (46-116); ASPARTATE AMINO TRANSFERASE 44 Units/L (15-37); BLOOD UREA NITROGEN 12 mg/dL (7-18); CALCIUM 7.9 mg/dL (8.5-10.1); CARBON DIOXIDE 28.5 mmol/L (21-32); CHLORIDE 109 mmol/L (98-107); CREATININE 1.04 mg/dL (0.55-1.02); SODIUM 145 mmol/L (136-145); TOTAL PROTEIN 5.5 g/dL (6.4-8.2); eGFR BLACK RACES > 60 (>60); eGFR NON BLACK RACES 56 (>60)
[2017-02-13 06:44] LABS: BAND NEUTROPHILS % 2 % (0-10); PLATELET MORPHOLOGY COMMENT NORMAL (NORMAL)
[2017-02-13] MEDS: XARELTO PO SCH (08:42)
[2017-02-13] MEDS: COZAAR PO SCH (08:43)
[2017-02-13] MEDS: MICRO K EXTEN CAP 10 MEQ PO SCH (08:43)
[2017-02-13] MEDS: NexIUM PO SCH (08:43)
[2017-02-13] MEDS: LINZESS PO SCH (08:43)
[2017-02-13] MEDS: ZANTAC PO SCH (08:44)
[2017-02-13] MEDS: CLARITIN PO SCH (08:44)
[2017-02-13] MEDS: ZITHROMAX INJ 500 MG VIAL 500 MG in NS 250 ML IV 250 ML IV SCH (08:44)
[2017-02-13] MEDS: SYNTHROID 75 mcg TAB PO SCH (08:44)
[2017-02-13] MEDS: HYDROCHLOROTHIAZIDE 12.5 MG CAP PO SCH (08:44)
[2017-02-13] MEDS: NYSTATIN POWDER TOP SCH (08:45)
[2017-02-13] MEDS: ZOFRAN INJ 4 MG VIAL IVP PRN (08:54)
[2017-02-13 13:01] VITALS: BP 143/77
[2017-02-13] MEDS: NORCO 5/325 MG TAB PO PRN (13:57)
== END 2017-02-13 14:35 | disposition home or self-care (01) | DRG 190 ==
LOC: ER 14:07 → MED/SURG 20:56 → OBSVTOIN 02-09 08:30
PROVIDERS: ADMIT Internal Medicine; ATTEND Internal Medicine
PROC: 0DJ08ZZ Inspection of Upper Intestinal Tract, Via Natural or Artificial Opening Endoscopic (ICD-10-PCS; principal; 2017-02-12 13:00)
DX: J44.1 Chronic obstructive pulmonary disease with (acute) exacerbation (principal); J20.9 Acute bronchitis, unspecified; I10 Essential (primary) hypertension; J96.00 Acute respiratory failure, unspecified whether with hypoxia or hypercapnia; K21.9 Gastro-esophageal reflux disease without esophagitis; K44.9 Diaphragmatic hernia without obstruction or gangrene; F17.200 Nicotine dependence, unspecified, uncomplicated; R07.89 Other chest pain; R10.13 Epigastric pain; R13.10 Dysphagia, unspecified; K29.70 Gastritis, unspecified, without bleeding; K25.9 Gastric ulcer, unspecified as acute or chronic, without hemorrhage or perforation; R55 Syncope and collapse; D69.6 Thrombocytopenia, unspecified
CPT/HCPCS: 36415; 36600; 71010; 71275; 80048; 80053; 82550; 82553; 82803; 84132; 84484; 85025; 87070; 87205; 87880; 93005; 93010; 94640; 94760; 96365; 96367; 96374; 96375; 99284; A4216; A4222; A4217; G0378; J0456; J1885; J2270; J2405; J2550; J2920; J2930; J3490; J7620

== ENCOUNTER 2017-03-05 13:20 | Emergency (ER) | payer OTHER, MEDICAID ==
[2017-03-05 13:25] VITALS: BP 134/52; BMI 29.9
--- NOTE | 2017-03-05 14:18 | DR.GENAD ---
HPI - PCP Primary Care Physician: krissy - HPI Comment HPI Comment: PATIENT HAVE SEVERE HEADACHE SINCE SHE WOKE UP THIS AM. HISTORY CLUSTER HEADACHE. NO FEVER. CHEST PAIN LOWER XYPHOID ABD EPIGASTRIC PAIN, SHARP AND NON RADIATING. - Complaint/Symptoms Chief Complaint Doctors Comments: CHEST PAIN, HEADACHE Chief Complaint:: patient strated she woke up this morning with a terrible headache and epigastric pain. patient stated she has a hx of cluster headaches. - Nurses notes reviewed Nurses Notes Review: Yes - Source History Provided: Patient - Mode of Arrival Mode of Arrival: Ambulatory - Timing Onset of Chief Complaint: 03/05/17 Came on: Suddenly - Duration Duration: Constant Duration: Hours - Severity Severity: Moderate PMH - PMH Past Medical History: Yes Past Medical History: Arthritis, CHF, Hypertension, Hypothyroidism Past Surgical History: Yes Surgical History: Appendectomy, Cholecystectomy, Ortho Surgery - Family History History of Family Medical Conditions: Yes Family Medical History: Coronary Artery Disease, Hypertension - Social History Does patient currently use any type of tobacco product: Yes Have you used tobacco products in the last 12 months: Yes Type of Tobacco Use: Cigarettes How many years tobacco product used: 30 Does any household member use tobacco: Yes Alcohol Use: None Do you use any recreational Drugs:: No Lives With: Family Lives Where: Home - infectious screening In the last 2 months have you had wt loss of >10#?: NO Have you had fever, night sweats or hemotysis?: No Have you traveled outside the country in the last 6 months?: No Isolation: Standard ROS - Review of Systems Constitutional: No Symptoms Reported Eyes: No Symptoms Reported ENTM: No Symptoms Reported Respiratoy: No Symptoms Reported Cardiovascular: Chest Pain Gastrointestinal/Abdominal: No Symptoms Reported Genitourinary: No Symptoms Reported Neurological: Headache Musculoskeletal: No Symptoms Reported Integumentary: No Symptoms Reported Hematologic/Lymphatic: No Symptoms Reported Endocrine: No Symptoms Reported All Other Systems: Reviewed and Negative PE - Vital Signs Vitals: Temperature 98.7 F Pulse Rate 77 Respiratory Rate 16 Blood Pressure [Right Arm] 143/77 Blood Pressure [Left Arm] 107/55 Blood Pressure 134/52 O2 Sat by Pulse Oximetry 98 - General Limitations: No Limitations General Appearance: Alert - Head Head Exam: Normal Inspection - Eyes Eye exam: Normal Appearance - ENT ENT Exam: Normal External Ear Exam External Ear Exam: Normal External Inspection TM/Canal Exam: Bilateral Normal Nose Exam: Normal Nose Exam Mouth Exam: Normal Inspection Throat Exam: Normal Inspection - Neck Neck Exam: Trachea Midline - Chest Chest Inspection: Symmetric Chest Wall Rise - Respiratory Respiratory Exam: Normal Lung Sounds Bilat Respiratory Exam: Bilateral Clear to Auscultation - Cardiovascular Cardiovascular Exam: Regular Rate, Normal Rhythm, Normal Heart Sounds - Abdominal Exam Abdominal Exam: Normal Bowel Sounds, Soft. negative: Tenderness - Extremities Extremities Exam: Normal Inspection - Back Back Exam: Normal Inspection - Neurologic Neurological Exam: Alert, Oriented X3, CN II-XII Intact, Normal Gait, Reflexes Normal. negative: Motor Sensory Deficit - Psychiatric Psychiatric Exam: Normal Affect, Normal Mood - Skin Skin Exam: Normal Color MDM - Additional Information Additional Information Obtained From: Family - Differential Diagnosis Differential Diagnosis: CHEST PAIN, MIGRAINE HEADACHE, ID Course - Treatment Treatment: SEE ORDERS. - Education/Counseling Education/Counseling: Patient, Education Educated On: Treatment, Diagnosis, Needs for Follow Up ROR - Labs Reviewed Laboratory Results Reviewed?: Yes Result Diagrams: 03/05/17 14:31 03/05/17 14:31 Laboratory: WBC 4.7 X10^3/uL (3.6-10.0) 03/05/17 14:31 RBC 4.00 X10^6/uL (3.5-5.4) 03/05/17 14:31 Hgb 12.0 g/dL (12.0-16.0) 03/05/17 14:31 Hct 34.7 % (36.0-47.0) L 03/05/17 14:31 MCV 86.7 fL (80.0-100.0) 03/05/17 14:31 MCH 30.0 pg (27.0-34.0) 03/05/17 14:31 MCHC 34.6 g/dL (33.0-35.0) 03/05/17 14:31 RDW 14.1 % (11.6-16.5) 03/05/17 14:31 Plt Count 163 X10^3/uL (150.0-450.0) 03/05/17 14:31 MPV 8.2 fL (7.4-11.0) 03/05/17 14:31 Neut % 57.4 % (42.0-75.0) 03/05/17 14:31 Lymph % 28.1 % (21.0-51.0) 03/05/17 14:31 [place] % 7.6 % (0.0-13.0) 03/05/17 14:31 Eos % 5.5 % (0.9-2.9) H 03/05/17 14:31 Baso % 1.4 % (0.2-1.0) H 03/05/17 14:31 Neut # 2.7 x10^3/uL (2.2-4.8) 03/05/17 14:31 Lymph # 1.3 X10^3/uL (1.3-2.9) 03/05/17 14:31 [place] # 0.4 x10^3/uL (0.3-0.8) 03/05/17 14:31 Eos # 0.3 x10^3/uL (0.0-0.2) H 03/05/17 14:31 Baso # 0.1 X10^3/uL (0.0-0.1) 03/05/17 14:31 Absolute Nucleated RBC 0.0 /100WBC 03/05/17 14:31 Sodium 141 mmol/L (136-145) 03/05/17 14:31 Corrected Sodium TNP 03/05/17 14:31 Potassium 3.6 mmol/L (3.5-5.1) 03/05/17 14:31 Chloride 105 mmol/L (98-107) 03/05/17 14:31 Carbon Dioxide 32.0 mmol/L (21-32) 03/05/17 14:31 BUN 21 mg/dL (7-18) H 03/05/17 14:31 Creatinine 1.03 mg/dL (0.55-1.02) H 03/05/17 14:31 Est GFR (MDRD) Af Amer > 60 (>60) 03/05/17 14:31 Est GFR (MDRD) Non-Af 57 (>60) L 03/05/17 14:31 Glucose 100 mg/dL (65-99) H 03/05/17 14:31 Calcium 9.1 mg/dL (8.5-10.1) 03/05/17 14:31 Corrected Calcium TNP 03/05/17 14:31 Total Bilirubin 0.30 mg/dL (0.2-1.0) 03/05/17 14:31 AST 20 Units/L (15-37) 03/05/17 14:31 ALT 27 Units/L (12-78) 03/05/17 14:31 Alkaline Phosphatase 83 Units/L (46-116) 03/05/17 14:31 Creatine Kinase 42 Units/L (26-192) 03/05/17 18:17 CK-MB (CK-2) < 1.0 ng/mL (0-4.0) 03/05/17 18:17 CK/CKMB % Calc 2.4 % (<4) 03/05/17 18:17 Troponin I 0.07 ng/mL (0-1.5) 03/05/17 18:17 Total Protein 7.1 g/dL (6.4-8.2) 03/05/17 14:31 Albumin 3.4 g/dL (3.4-5.0) 03/05/17 14:31 Globulin 3.7 g/dL (2.5-4.5) 03/05/17 14:31 Albumin/Globulin Ratio 0.9 Ratio (1.1-2.1) L 03/05/17 14:31 - XRAY XRAY Interpreted by: Radiologist XRAY Findings: report discuss with patient. - EKG Rhythm: Paced - Diagnosis Discharge Problem: Headache Qualifiers: Headache type: tension-type Headache chronicity pattern: acute headache Intractability: intractable Qualified Code(s): G44.201 - Tension-type headache, unspecified, intractable Chest pain Qualifiers: Chest pain type: precordial pain Qualified Code(s): R07.2 - Precordial pain - Discharge Plan Disposition: 01 HOME, SELF-CARE Condition: Stable - Follow ups/Referrals Follow ups/Referrals: LOYD JAMISON [Primary Care Provider] - 3 days - Instructions Instructions: Migraine Headache, [id number], Chest Pain Observation Additional Instructions: RETURN TO ED IF WORSE.
[2017-03-05] MEDS ORDERED: ZOFRAN INJ 4 MG VIAL IM ONE ×2 (14:22→17:41)
[2017-03-05] MEDS ORDERED: MORPHINE SULFATE INJ 4 MG IM ONE (14:22)
[2017-03-05 14:38] LABS: BASOPHILS # (AUTO) 0.1 X10^3/uL (0.0-0.1); BASOPHILS % (AUTO) 1.4 % (0.2-1.0); EOSINOPHILS # (AUTO) 0.3 x10^3/uL (0.0-0.2); EOSINOPHILS % (AUTO) 5.5 % (0.9-2.9); HEMATOCRIT 34.7 % (36.0-47.0); LYMPHOCYTES # (AUTO) 1.3 X10^3/uL (1.3-2.9); LYMPHOCYTES % (AUTO) 28.1 % (21.0-51.0); MEAN CORPUSCULAR HGB CONC 34.6 g/dL (33.0-35.0); MEAN CORPUSCULAR VOLUME 86.7 fL (80.0-100.0); MEAN PLATELET VOLUME 8.2 fL (7.4-11.0); MONOCYTES # (AUTO) 0.4 x10^3/uL (0.3-0.8); MONOCYTES % (AUTO) 7.6 % (0.0-13.0); NEUTROPHILS # (AUTO) 2.7 x10^3/uL (2.2-4.8); NEUTROPHILS % (AUTO) 57.4 % (42.0-75.0); PLATELET COUNT 163 X10^3/uL (150.0-450.0); RED CELL DISTRIBUTION WIDTH 14.1 % (11.6-16.5); WHITE BLOOD COUNT 4.7 X10^3/uL (3.6-10.0)
--- NOTE | 2017-03-05 14:52 | RAD ---
History: Chest pain Study: Chest single view Findings: Single AP view of the chest is compared to a study of February 10, 2017. Heart and mediasti nal structures are unchanged in appearance. The dual lead left-sided permanent cardiac pacemaker brian ins in place. Lungs and pleural spaces are clear. Osseous structures appear intact. Impression: No change in the appearance of the chest and no evidence of acute disease. Reported By:
[2017-03-05 15:02] LABS: BLOOD UREA NITROGEN 21 mg/dL (7-18); CALCIUM 9.1 mg/dL (8.5-10.1); CHLORIDE 105 mmol/L (98-107); CREATININE 1.03 mg/dL (0.55-1.02); SODIUM 141 mmol/L (136-145); TROPONIN I 0.08 ng/mL (0-1.5); eGFR BLACK RACES > 60 (>60); eGFR NON BLACK RACES 57 (>60)
[2017-03-05 15:06] LABS: ALANINE AMINOTRANSFERASE 27 Units/L (12-78); ALBUMIN 3.4 g/dL (3.4-5.0); ALKALINE PHOSPHATASE 83 Units/L (46-116); ASPARTATE AMINO TRANSFERASE 20 Units/L (15-37); CKMB % 2.5 % (<4); CREATINE KINASE 40 Units/L (26-192); CREATINE KINASE MB < 1.0 ng/mL (0-4.0); TOTAL PROTEIN 7.1 g/dL (6.4-8.2)
[2017-03-05] MEDS ORDERED: ZOFRAN INJ 4 MG VIAL ONE ×2 (15:12→18:02)
[2017-03-05] MEDS ORDERED: MORPHINE SULFATE INJ 4 MG ONE (15:13)
[2017-03-05] MEDS ORDERED: LEVSIN/MAALOX/LIDOC VISC PO ONE (16:48)
[2017-03-05] MEDS ORDERED: LEVSIN/MAALOX/LIDOC VISC ONE (16:50)
[2017-03-05] MEDS ORDERED: PEPCID TAB 20 MG ONE ×2 (16:50→17:20)
[2017-03-05] MEDS: PEPCID TAB 20 MG PO ONE ×2 (16:54→17:26)
[2017-03-05] MEDS ORDERED: TORADOL 60 MG VIAL IM ONE (17:41)
[2017-03-05] MEDS ORDERED: TORADOL 60 MG VIAL ONE (18:03)
[2017-03-05 18:43] LABS: CKMB % 2.4 % (<4); CREATINE KINASE 42 Units/L (26-192); CREATINE KINASE MB < 1.0 ng/mL (0-4.0); TROPONIN I 0.07 ng/mL (0-1.5)
== END 2017-03-05 19:23 | disposition home or self-care (01) ==
LOC: ER 13:40
DX: R07.2 Precordial pain (principal); G44.201 Tension-type headache, unspecified, intractable
CPT/HCPCS: 36415; 71010; 80053; 82550; 82553; 84484; 85025; 93005; 93010; 96372; 99283; J1885; J2270; J2405

== ENCOUNTER 2017-03-16 19:27 | Observation (INO) | payer OTHER, MEDICAID ==
--- NOTE | 2017-03-16 20:40 | DR.GENAD ---
HPI - PCP Primary Care Physician: krissy - HPI Comment HPI Comment: PATIENT DENIES FEVER. HAD VERTIGO ATTACK IN THE PAST BUT NOT THIS SEVERE. NO LOC. - Complaint/Symptoms Chief Complaint Doctors Comments: PATIENT FELL BACKWARDS AND HIT HER HEAD, NECK AND BACK AND CHEST ON THE GROUND. SHE HAD SUDDEN VERTIGO ATTACK AND WAS SPINNING WHEN SHE FELL. SHE IS STILL SPINNING. Chief Complaint:: patient got dizzy and fell back on the floor landed on back neck area. patient now complaining of pain in back, neck, chest, and shoulder. fall occured this am Self Treatment fo Chief Complaint: took 4 extra strength tylenol 2 this am then some advil and 2 extra strength tylenol around 4pm - Nurses notes reviewed Nurses Notes Review: Yes - Source History Provided: Patient - Mode of Arrival Mode of Arrival: Ambulatory - Timing Onset of Chief Complaint: 03/16/17 Came on: Suddenly - Duration Duration: Constant Duration: Hours - Severity Severity: Moderate PMH - PMH Past Medical History: Yes Past Medical History: Arthritis, CHF, Hypertension, Hypothyroidism Past Surgical History: Yes Surgical History: Appendectomy, Cholecystectomy, Ortho Surgery - Family History History of Family Medical Conditions: Yes Family Medical History: Coronary Artery Disease, Hypertension - Social History Does patient currently use any type of tobacco product: Yes Have you used tobacco products in the last 12 months: Yes Type of Tobacco Use: Cigarettes How many years tobacco product used: 30 Does any household member use tobacco: Yes Alcohol Use: None Do you use any recreational Drugs:: No Lives With: Family Lives Where: Home - infectious screening In the last 2 months have you had wt loss of >10#?: NO Have you had fever, night sweats or hemotysis?: No Have you traveled outside the country in the last 6 months?: No Isolation: Standard ROS - Review of Systems Constitutional: Weakness, Fatigue. negative: Chills, Diaphoresis, Fever, Loss of Appetite Eyes: negative: Eye Pain, Blurred Vision, Discharge ENTM: No Symptoms Reported. negative: Ear Pain, Nose Discharge, Nose Congestion , Throat Pain Respiratoy: Non-Productive Cough, Short of Breath. negative: Productive Cough, Wheezing, Hemoptysis Cardiovascular: Chest Pain. negative: Palpitations, Syncope Gastrointestinal/Abdominal: Nausea. negative: Abdominal Pain, Constipation, Diarrhea, Vomiting Genitourinary: Pain. negative: Dysuria, Frequency, Hematuria Neurological: Headache, Weakness, Dizziness, Problems Walking (ATAXIA). negative: Speech Problem Musculoskeletal: Muscle Pain Integumentary: Bruises. negative: Change in Color Hematologic/Lymphatic: No Symptoms Reported Endocrine: No Symptoms Reported All Other Systems: Reviewed and Negative PE - Vital Signs Vitals: Temperature 98.4 F Pulse Rate 81 Respiratory Rate 20 Blood Pressure [Right Arm] 143/77 Blood Pressure [Left Arm] 107/55 Blood Pressure 119/69 O2 Sat by Pulse Oximetry 97 - General Limitations: No Limitations General Appearance: Alert - Head Head Exam: Normal Inspection - Eyes Eye exam: Normal Appearance, PERRL, EOMI. negative: Scleral Icterus, Conjunctival Injection, Periorbital Swelling, Periorbital Tenderness - ENT ENT Exam: Normal Oropharynx, Normal External Ear Exam, Mucous Membranes Moist, TM's Normal Bilaterally External Ear Exam: Normal External Inspection TM/Canal Exam: Bilateral Normal Nose Exam: Normal Nose Exam Mouth Exam: Normal Inspection Throat Exam: Normal Inspection - Neck Neck Exam: Trachea Midline, Tenderness (POSTERIOR LOWER NECK.) - Chest Chest Inspection: Symmetric Chest Wall Rise, Tenderness - Respiratory Respiratory Exam: Chest Wall Tenderness Respiratory Exam: Bilateral Rhonchi, Upper Rhonchi, Lower Rhonchi - Cardiovascular Cardiovascular Exam: Regular Rate, Normal Rhythm, Normal Heart Sounds - Abdominal Exam Abdominal Exam: Normal Bowel Sounds, Soft. negative: Tenderness - Extremities Extremities Exam: Normal Inspection - Back Back Exam: Paraspinal Tenderness, Vertebral Tenderness (CERVICAL, T AND L SPINE TENDERNESS.) - Neurologic Neurological Exam: Alert, Oriented X3 - Psychiatric Psychiatric Exam: Anxious - Skin Skin Exam: Normal Color MDM - Differential Diagnosis Differential Diagnosis: SPRAIN, STRAIN, FRACTURE AND CONTUSION, VERTIGO, HEADACHE Course - Treatment Treatment: SEE ORDERS. MECLIZINE IN ED. PATIENT STILL SPINNING. TORADOL IM, PAIN DECREASING. - Consultation Consultation Comments: DISCUSS PATIENT WITH DR. GRAHAM. HE WILL ADMIT PATIENT. - Education/Counseling Education/Counseling: Patient, Education Educated On: Treatment, Diagnosis ROR - Labs Reviewed Laboratory Results Reviewed?: Yes Result Diagrams: 03/16/17 20:41 03/16/17 20:41 - XRAY XRAY Interpreted by: Radiologist XRAY Findings: REPORT DISCUSS WITH PATIENT. - EKG Rhythm: NSR (EKG NOTED.) - Diagnosis Discharge Problem: Vertigo, Muscle strain, multiple sites, Multiple sprains, Hypokalemia Chest pain Qualifiers: Chest pain type: other chest pain Qualified Code(s): R07.89 - Other chest pain ; R07.8 - Other chest pain Headache Qualifiers: Headache type: post-traumatic Headache chronicity pattern: acute headache Intractability: not intractable Qualified Code(s): G44.319 - Acute post- traumatic headache, not intractable - Discharge Plan Disposition: 09 ADMITTED INPATIENT Condition: Stable - Follow ups/Referrals - Instructions
[2017-03-16] MEDS ORDERED: ZOFRAN INJ 4 MG VIAL IM ONE (20:41)
[2017-03-16] MEDS ORDERED: TORADOL 60 MG VIAL IM ONE (20:41)
[2017-03-16 20:52] LABS: BASOPHILS % (AUTO) 1.2 % (0.2-1.0); EOSINOPHILS # (AUTO) 0.3 x10^3/uL (0.0-0.2); EOSINOPHILS % (AUTO) 6.3 % (0.9-2.9); HEMOGLOBIN 12.2 g/dL (12.0-16.0); LYMPHOCYTES # (AUTO) 1.5 X10^3/uL (1.3-2.9); LYMPHOCYTES % (AUTO) 36.3 % (21.0-51.0); MEAN CORPUSCULAR HEMOGLOBIN 29.8 pg (27.0-34.0); MEAN CORPUSCULAR HGB CONC 34.7 g/dL (33.0-35.0); MEAN CORPUSCULAR VOLUME 85.8 fL (80.0-100.0); MEAN PLATELET VOLUME 8.2 fL (7.4-11.0); MONOCYTES # (AUTO) 0.2 x10^3/uL (0.3-0.8); MONOCYTES % (AUTO) 6.1 % (0.0-13.0); NEUTROPHILS % (AUTO) 50.1 % (42.0-75.0); PLATELET COUNT 146 X10^3/uL (150.0-450.0); RED BLOOD COUNT 4.08 X10^6/uL (3.5-5.4); RED CELL DISTRIBUTION WIDTH 13.8 % (11.6-16.5); WHITE BLOOD COUNT 4.1 X10^3/uL (3.6-10.0)
[2017-03-16 21:26] LABS: ALANINE AMINOTRANSFERASE 22 Units/L (12-78); ALBUMIN 3.6 g/dL (3.4-5.0); ALKALINE PHOSPHATASE 77 Units/L (46-116); ASPARTATE AMINO TRANSFERASE 22 Units/L (15-37); BLOOD UREA NITROGEN 15 mg/dL (7-18); CARBON DIOXIDE 29.1 mmol/L (21-32); CHLORIDE 102 mmol/L (98-107); CREATINE KINASE 50 Units/L (26-192); CREATINE KINASE MB < 1.0 ng/mL (0-4.0); CREATININE 1.34 mg/dL (0.55-1.02); SODIUM 142 mmol/L (136-145); TOTAL PROTEIN 7.3 g/dL (6.4-8.2); TROPONIN I 0.06 ng/mL (0-1.5); eGFR BLACK RACES 51 (>60); eGFR NON BLACK RACES 42 (>60)
[2017-03-16] MEDS ORDERED: TORADOL 60 MG VIAL ONE (22:02)
[2017-03-16] MEDS ORDERED: ZOFRAN INJ 4 MG VIAL ONE (22:02)
--- NOTE | 2017-03-16 22:21 | CT ---
CT head without contrast Indication: Dizziness with fall Technique: Helical CT images of the brain were obtained without IV contrast. Reformatted images in th e coronal and sagittal planes were also generated for review. Comparison: None Findings: There is no intracranial hemorrhage, visible acute infarct, focal or generalized edema, extra-axial c ollection, hydrocephalus or mass. Mild periventricular and subcortical hypodensities are nonspecific but suggestive of chronic microangiopathic disease. A small mucous retention cyst within the right ma xillary sinus and inspissated secretions within the left maxillary sinus are noted. The remaining vis ualized paranasal sinuses and mastoid air cells are clear. No acute osseous or soft tissue abnormalit y is identified. Impression: No acute intracranial abnormality. Reported By:
--- NOTE | 2017-03-16 22:36 | CT ---
CT cervical spine without contrast Indication: Neck pain after fall. Technique: 3 mm axial images with coronal and sagittal reformat images provided from the cervical spi ne without IV contrast administration. Findings: No fracture or spondylolisthesis within the cervical spine. No prevertebral soft tissue swelling. Mild multilevel spondylosis and facet arthropathy is noted. No epidural hematoma identified. Impression: No acute fracture or spinal ceases of the cervical spine. Reported By:
[2017-03-16] MEDS ORDERED: ANTIVERT TAB 25 MG PO ONE (22:40)
[2017-03-16] MEDS ORDERED: ANTIVERT TAB 25 MG ONE (22:41)
[2017-03-16] MEDS ORDERED: POTASSIUM CHLORIDE LIQ 20 MEQ UDC PO ONE (22:41)
[2017-03-16] MEDS ORDERED: POTASSIUM CHLORIDE LIQ 20 MEQ UDC ONE (22:43)
--- NOTE | 2017-03-16 22:53 | CT ---
CT chest without contrast Indication: Fall with neck, chest and back pain Technique: Helical CT images of the chest were obtained without IV contrast. Reformatted images in th e coronal and sagittal planes were also generated for review. Comparison: 02/11/2017 Findings: No acute fracture or malalignment is identified. Limited noncontrast images of the upper ab domen demonstrate no acute abnormality. Evaluation for soft tissue pathology is limited without intravenous contrast. Given these limitations , the heart is normal in size without pericardial effusion. Moderate coronary atherosclerotic disease is noted. Left-sided transvenous pacing device is noted. The thoracic aorta and great vessels are mo derately calcified but normal in contour and caliber. No mediastinal hematoma is seen. The central ai rways are intact. No lymphadenopathy is seen. Apart from mild dependent atelectasis, the lungs are clear without focal consolidation or pulmonary c ontusion/laceration. No pleural effusion or pneumothorax is identified. Impression: No acute chest process. Reported By:
--- NOTE | 2017-03-16 23:03 | CT ---
CT lumbar spine without contrast Indication: Back pain after fall Technique: 3 mm axial images with coronal and sagittal reformatted images of the lumbar spine without IV contrast administration. Findings: No acute fracture or spondylolistheswithin the lumbar spine. Multilevel spondylosis and fac et arthropathy is noted,. At no level is there moderate or severe spinal canal or neural foraminal st enosis. IVC filter noted in place with tip below the level of the renal vein insertion. Moderate calc ified atherosclerotic disease of the non aneurysmal abdominal aorta. Degenerative change are noted wi thin bilateral SI joints. Impression: No acute fracture or spondylolisthesis within the lumbar spine. Reported By:
[2017-03-17] MEDS ORDERED: TORADOL 30 MG VIAL IVP PRN (00:58)
[2017-03-17] MEDS ORDERED: ANTIVERT TAB 25 MG PO PRN (00:58)
[2017-03-17 01:46] VITALS: BMI 30.4
[2017-03-17] MEDS: NS 1000 ML 1,000 ML IV SCH ×3 (01:48→21:19)
[2017-03-17 03:36] LABS: BASOPHILS # (AUTO) 0.1 X10^3/uL (0.0-0.1); BASOPHILS % (AUTO) 1.4 % (0.2-1.0); EOSINOPHILS # (AUTO) 0.3 x10^3/uL (0.0-0.2); EOSINOPHILS % (AUTO) 8.5 % (0.9-2.9); HEMATOCRIT 34.4 % (36.0-47.0); HEMOGLOBIN 11.8 g/dL (12.0-16.0); LYMPHOCYTES # (AUTO) 1.5 X10^3/uL (1.3-2.9); LYMPHOCYTES % (AUTO) 38.5 % (21.0-51.0); MEAN CORPUSCULAR HEMOGLOBIN 29.8 pg (27.0-34.0); MEAN CORPUSCULAR HGB CONC 34.2 g/dL (33.0-35.0); MEAN CORPUSCULAR VOLUME 87.2 fL (80.0-100.0); MEAN PLATELET VOLUME 8.6 fL (7.4-11.0); MONOCYTES # (AUTO) 0.3 x10^3/uL (0.3-0.8); MONOCYTES % (AUTO) 8.3 % (0.0-13.0); NEUTROPHILS # (AUTO) 1.7 x10^3/uL (2.2-4.8); NEUTROPHILS % (AUTO) 43.3 % (42.0-75.0); PLATELET COUNT 123 X10^3/uL (150.0-450.0); RED BLOOD COUNT 3.95 X10^6/uL (3.5-5.4); WHITE BLOOD COUNT 3.8 X10^3/uL (3.6-10.0)
[2017-03-17 03:48] LABS: ALANINE AMINOTRANSFERASE 21 Units/L (12-78); ALBUMIN 3.3 g/dL (3.4-5.0); ALKALINE PHOSPHATASE 69 Units/L (46-116); ASPARTATE AMINO TRANSFERASE 21 Units/L (15-37); BLOOD UREA NITROGEN 19 mg/dL (7-18); CALCIUM 8.6 mg/dL (8.5-10.1); CHLORIDE 103 mmol/L (98-107); CHOL/HDL RATIO 3.3 (0.0-5.0); CHOLESTEROL 150 mg/dL (0-200); COR CA(FOR HYPOALB) 9.2 mg/dL (8.5-10.1); CREATININE 1.38 mg/dL (0.55-1.02); HDL CHOLESTEROL 46 mg/dL (40-60); SODIUM 142 mmol/L (136-145); TOTAL PROTEIN 6.7 g/dL (6.4-8.2); TRIGLYCERIDES 101 mg/dL (0-150); eGFR BLACK RACES 49 (>60); eGFR NON BLACK RACES 40 (>60)
[2017-03-17 04:04] LABS: CKMB % 1.7 % (<4); CREATINE KINASE 60 Units/L (26-192); CREATINE KINASE MB < 1.0 ng/mL (0-4.0); TROPONIN I 0.07 ng/mL (0-1.5)
[2017-03-17] MEDS: NORCO 5/325 MG TAB PO PRN ×2 (05:12→20:27)
[2017-03-17] MEDS ORDERED: TORADOL 15 MG VIAL IVP PRN (06:53)
[2017-03-17 09:42] LABS: CKMB % 2.4 % (<4); CREATINE KINASE 41 Units/L (26-192); CREATINE KINASE MB < 1.0 ng/mL (0-4.0); TROPONIN I 0.07 ng/mL (0-1.5)
[2017-03-17] MEDS: ZOFRAN INJ 4 MG VIAL IVP PRN (10:26)
[2017-03-17] MEDS ORDERED: FLEXERIL TAB 10 MG PO PRN (12:56)
[2017-03-17] MEDS ORDERED: PATIENT'S HOME MEDICATION (Albuterol Sulfate [Proair Hfa] 2 PUFF) INH SCH (13:00)
[2017-03-17] MEDS: PROVENTIL NEB TX 0.083% 2.5MG/ 3ML NEB SCH ×2 (16:22→21:07)
[2017-03-17] MEDS: SOLU-Medrol 125 MG VIAL IVP SCH (17:50)
[2017-03-17] MEDS: MICRO K EXTEN CAP 10 MEQ PO SCH (18:30)
[2017-03-17] MEDS: BUSPAR PO SCH (20:25)
[2017-03-17] MEDS: LOPRESSOR TAB 50 MG PO SCH (20:25)
[2017-03-17] MEDS: ISOSORBIDE DINITRATE PO SCH (20:26)
[2017-03-17] MEDS: ZANTAC PO SCH (20:26)
[2017-03-17] MEDS ORDERED: PATIENT'S HOME MEDICATION (Atorvastatin Calcium [Atorvastatin Calcium] 1 TAB) PO SCH (21:00)
[2017-03-17] MEDS ORDERED: PATIENT'S HOME MEDICATION (Buspirone Hcl [Buspirone Hcl] 1 TAB) PO SCH (21:00)
[2017-03-17] MEDS ORDERED: ISOSORBIDE DINITRATE 10 MG PO SCH (21:00)
[2017-03-17] MEDS ORDERED: LIPITOR TAB 40 MG PO SCH (21:00)
[2017-03-17] MEDS ORDERED: REQUIP PO SCH (21:00)
[2017-03-17] MEDS ORDERED: MAALOX or MYLANTA PO PRN (21:29)
[2017-03-18] MEDS: NORCO 5/325 MG TAB PO PRN (02:30)
[2017-03-18] MEDS: ZOFRAN INJ 4 MG VIAL IVP PRN (02:30)
[2017-03-18] MEDS: NS 1000 ML 1,000 ML IV SCH (04:40)
[2017-03-18 05:50] LABS: ALANINE AMINOTRANSFERASE 24 Units/L (12-78); ALBUMIN 2.9 g/dL (3.4-5.0); ALKALINE PHOSPHATASE 68 Units/L (46-116); ASPARTATE AMINO TRANSFERASE 25 Units/L (15-37); BLOOD UREA NITROGEN 14 mg/dL (7-18); CALCIUM 8.4 mg/dL (8.5-10.1); CARBON DIOXIDE 32.6 mmol/L (21-32); CHLORIDE 108 mmol/L (98-107); COR CA(FOR HYPOALB) 9.3 mg/dL (8.5-10.1); CREATININE 1.08 mg/dL (0.55-1.02); SODIUM 144 mmol/L (136-145); eGFR BLACK RACES > 60 (>60); eGFR NON BLACK RACES 54 (>60)
[2017-03-18 06:17] LABS: BASOPHILS % (AUTO) 1.5 % (0.2-1.0); EOSINOPHILS # (AUTO) 0.2 x10^3/uL (0.0-0.2); EOSINOPHILS % (AUTO) 8.9 % (0.9-2.9); HEMATOCRIT 29.9 % (36.0-47.0); HEMOGLOBIN 10.4 g/dL (12.0-16.0); LYMPHOCYTES # (AUTO) 0.8 X10^3/uL (1.3-2.9); LYMPHOCYTES % (AUTO) 31.8 % (21.0-51.0); MEAN CORPUSCULAR HEMOGLOBIN 30.3 pg (27.0-34.0); MEAN CORPUSCULAR HGB CONC 34.9 g/dL (33.0-35.0); MEAN PLATELET VOLUME 8.4 fL (7.4-11.0); MONOCYTES # (AUTO) 0.1 x10^3/uL (0.3-0.8); MONOCYTES % (AUTO) 5.1 % (0.0-13.0); NEUTROPHILS # (AUTO) 1.3 x10^3/uL (2.2-4.8); NEUTROPHILS % (AUTO) 52.7 % (42.0-75.0); PLATELET COUNT 113 X10^3/uL (150.0-450.0); RED BLOOD COUNT 3.44 X10^6/uL (3.5-5.4); RED CELL DISTRIBUTION WIDTH 13.7 % (11.6-16.5); WHITE BLOOD COUNT 2.5 X10^3/uL (3.6-10.0)
[2017-03-18] MEDS: PROVENTIL NEB TX 0.083% 2.5MG/ 3ML NEB SCH (08:46)
[2017-03-18] MEDS ORDERED: ASPIRIN EC 81 MG PO SCH (09:00)
[2017-03-18] MEDS ORDERED: XARELTO PO SCH (09:00)
[2017-03-18] MEDS ORDERED: PATIENT'S HOME MEDICATION (Potassium Chloride [Potassium Chloride] 10 MEQ) PO SCH (09:00)
[2017-03-18] MEDS ORDERED: SYNTHROID 75 mcg TAB PO SCH (09:00)
[2017-03-18] MEDS ORDERED: NexIUM PO SCH (09:00)
[2017-03-18] MEDS ORDERED: FLONASE NASAL SPRAY ENOSTRIL SCH (09:00)
[2017-03-18] MEDS ORDERED: COZAAR PO SCH (09:00)
[2017-03-18] MEDS ORDERED: LASIX PO SCH (09:00)
[2017-03-18] MEDS ORDERED: PATIENT'S HOME MEDICATION (Losartan Potassium [Losartan Potassium] 25 MG) PO SCH (09:00)
[2017-03-18] MEDS: ISOSORBIDE DINITRATE PO SCH (09:18)
[2017-03-18] MEDS: BUSPAR PO SCH (09:18)
[2017-03-18] MEDS: LOPRESSOR TAB 50 MG PO SCH (09:18)
[2017-03-18] MEDS: ZANTAC PO SCH (09:19)
[2017-03-18] MEDS: MICRO K EXTEN CAP 10 MEQ PO SCH (09:19)
[2017-03-18 11:06] VITALS: BP 126/58
== END 2017-03-18 10:30 | disposition home or self-care (01) ==
LOC: ER 19:42 → MED/SURG 03-17 00:25
PROVIDERS: ADMIT Internal Medicine; ATTEND Internal Medicine
DX: S09.90XA Unspecified injury of head, initial encounter (principal); W19.XXXA Unspecified fall, initial encounter; Y92.9 Unspecified place or not applicable; R42 Dizziness and giddiness; S30.0XXA Contusion of lower back and pelvis, initial encounter; S10.93XA Contusion of unspecified part of neck, initial encounter; R94.31 Abnormal electrocardiogram [ECG] [EKG]; R07.89 Other chest pain; I25.10 Atherosclerotic heart disease of native coronary artery without angina pectoris; G44.319 Acute post-traumatic headache, not intractable
CPT/HCPCS: 36415; 70450; 71250; 72125; 72131; 80053; 80061; 82550; 82553; 84484; 85025; 85610; 85730; 93005; 93010; 94640; 94760; 96365; 96372; 99284; A4222; G0378; J1885; J2405; J7613

== ENCOUNTER 2018-11-04 17:04 | Inpatient (IN) ==
[2018-11-04 17:56] LABS: BASOPHILS % (AUTO) 1.5 % (0.2-1.0); EOSINOPHILS # (AUTO) 0.2 x10^3/uL (0.0-0.2); EOSINOPHILS % (AUTO) 7.9 % (0.9-2.9); HEMOGLOBIN 9.9 g/dL (12.0-16.0); LYMPHOCYTES # (AUTO) 1.2 X10^3/uL (1.3-2.9); MEAN CORPUSCULAR HEMOGLOBIN 29.5 pg (27.0-34.0); MEAN CORPUSCULAR HGB CONC 34.2 g/dL (33.0-35.0); MEAN CORPUSCULAR VOLUME 86.1 fL (80.0-100.0); MEAN PLATELET VOLUME 8.3 fL (7.4-11.0); MONOCYTES # (AUTO) 0.2 x10^3/uL (0.3-0.8); MONOCYTES % (AUTO) 7.2 % (0.0-13.0); NEUTROPHILS # (AUTO) 1.3 x10^3/uL (2.2-4.8); NEUTROPHILS % (AUTO) 43.4 % (42.0-75.0); PLATELET COUNT 130 X10^3/uL (150.0-450.0); RED BLOOD COUNT 3.37 X10^6/uL (3.5-5.4); RED CELL DISTRIBUTION WIDTH 14.6 % (11.6-16.5)
[2018-11-04 18:13] LABS: ALANINE AMINOTRANSFERASE 21 Units/L (12-78); ALBUMIN 3.1 g/dL (3.4-5.0); ALKALINE PHOSPHATASE 103 Units/L (46-116); ASPARTATE AMINO TRANSFERASE 23 Units/L (15-37); BLOOD UREA NITROGEN 16 mg/dL (7-18); CALCIUM 8.4 mg/dL (8.5-10.1); CARBON DIOXIDE 26.5 mmol/L (21-32); CHLORIDE 107 mmol/L (98-107); COR CA(FOR HYPOALB) 9.1 mg/dL (8.5-10.1); CREATINE KINASE 98 Units/L (26-192); CREATININE 1.24 mg/dL (0.55-1.02); MAGNESIUM 1.6 mg/dL (1.7-2.9); SODIUM 141 mmol/L (136-145); TOTAL PROTEIN 6.2 g/dL (6.4-8.2); TROPONIN I 0.11 ng/mL (0-1.5); eGFR NON BLACK RACES 46 (>60)
[2018-11-04] MEDS ORDERED: K-LYTE EFFERVESCENT PO ONE ×2 (18:22→18:23)
[2018-11-04] MEDS ORDERED: K-LYTE EFFERVESCENT ONE (18:25)
--- NOTE | 2018-11-04 19:03 | DR.CP ---
HPI Time Seen Time Seen by Provider: 11/04/18 18:46 PCP Primary Care Physician: ADÁN Complaint Chief Complaint:: PT C/O LT SIDED CHEST, SHOULDER AND LT ARM PAIN. PT STATES IHER SYMPTOMS STARTED THIS MORNING. PT STATES SHE HAS BEEN HAVING WEAKNESS. 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 History History of Family Medical Conditions: Yes Family Medical History: Coronary Artery Disease and Hypertension Social History Does patient currently use any type of tobacco product: Yes Have you used tobacco products in the last 12 months: Yes Type of Tobacco Use: Cigarettes Does any household member use tobacco: Yes Alcohol Use: None Do you use any recreational Drugs:: No Lives With: Family Lives Where: Home infectious screening In the last 2 months have you had wt loss of >10#?: NO Have you had fever, night sweats or hemotysis?: No Have you traveled outside the country in the last 6 months?: No Isolation: Standard ROS Review of Systems Constitutional: No Symptoms Reported Eyes: No Symptoms Reported ENTM: No Symptoms Reported Respiratoy: No Symptoms Reported Cardiovascular: No Symptoms Reported Genitourinary: No Symptoms Reported Neurological: No Symptoms Reported Musculoskeletal: No Symptoms Reported Integumentary: No Symptoms Reported Hematologic/Lymphatic: No Symptoms Reported and Blood Clots Endocrine: No Symptoms Reported PE Vitals Vitals: Temperature 97.5 F Pulse Rate [Radial] 88 Pulse Rate [Apical] 69 Pulse Rate 79 Respiratory Rate 20 Blood Pressure [Right Arm] 117/66 Blood Pressure [Left Arm] 107/55 Blood Pressure 103/56 O2 Sat by Pulse Oximetry 100 General General Appearance: Alert and In No Apparent Distress Head Head Exam: Normal Inspection, Atraumatic and Normocephalic Eyes Eye exam: Normal Appearance, PERRL and EOMI ENT ENT Exam: Normal Exam and Normal Oropharynx Chest Chest Inspection: Normal Inspection and Symmetric Chest Wall Rise Respiratory Respiratory Exam: Normal Lung Sounds Bilat Respiratory Exam: Bilateral: Clear to Auscultation Cardiovascular Cardiovascular Exam: Regular Rate, Normal Rhythm and Diastolic Murmur Abdominal Exam Abdominal Exam: Normal Inspection and Normal Bowel Sounds Back Back Exam: Normal Inspection and Full ROM Neurologic Neurological Exam: Alert, Oriented X3 and CN II-XII Intact Psychiatric Psychiatric Exam: Normal Affect and Normal Mood Skin Skin Exam: Warm, Dry and Intact ROR Labs Reviewed Laboratory Results Reviewed?: Yes Result Diagrams: 11/05/18 05:45 11/05/18 05:45 Laboratory: WBC 2.5 X10^3/uL (3.6-10.0) L 11/05/18 05:45 RBC 3.54 X10^6/uL (3.5-5.4) 11/05/18 05:45 Hgb 10.6 g/dL (12.0-16.0) L 11/05/18 05:45 Hct 30.8 % (36.0-47.0) L 11/05/18 05:45 MCV 87.0 fL (80.0-100.0) 11/05/18 05:45 MCH 29.9 pg (27.0-34.0) 11/05/18 05:45 MCHC 34.4 g/dL (33.0-35.0) 11/05/18 05:45 RDW 14.4 % (11.6-16.5) 11/05/18 05:45 Plt Count 114 X10^3/uL (150.0-450.0) L 11/05/18 05:45 MPV 8.9 fL (7.4-11.0) 11/05/18 05:45 Neut % (Auto) 34.7 % (42.0-75.0) L 11/05/18 05:45 Lymph % (Auto) 49.6 % (21.0-51.0) 11/05/18 05:45 [place] % (Auto) 6.8 % (0.0-13.0) 11/05/18 05:45 Eos % (Auto) 7.8 % (0.9-2.9) H 11/05/18 05:45 Baso % (Auto) 1.1 % (0.2-1.0) H 11/05/18 05:45 Neut # (Auto) 0.9 x10^3/uL (2.2-4.8) L 11/05/18 05:45 Lymph # (Auto) 1.2 X10^3/uL (1.3-2.9) L 11/05/18 05:45 [place] # (Auto) 0.2 x10^3/uL (0.3-0.8) L 11/05/18 05:45 Eos # (Auto) 0.2 x10^3/uL (0.0-0.2) 11/05/18 05:45 Baso # (Auto) 0.0 X10^3/uL (0.0-0.1) 11/05/18 05:45 Absolute Nucleated RBC 0.1 /100WBC 11/05/18 05:45 INR Target Range - 11/04/18 17:40 INR 1.06 (0.8-1.3) 11/04/18 17:40 APTT 32.0 SECONDS (22.9-36.5) 11/04/18 17:40 PTT Comment - 11/04/18 17:40 D-Dimer 542 ng/mL (0-400) H* 11/04/18 17:40 Sodium 146 mmol/L (136-145) H 11/05/18 05:45 Corrected Sodium TNP 11/05/18 05:45 Potassium 3.8 mmol/L (3.5-5.1) 11/05/18 05:45 Chloride 111 mmol/L (98-107) H 11/05/18 05:45 Carbon Dioxide 31.4 mmol/L (21-32) 11/05/18 05:45 BUN 11 mg/dL (7-18) 11/05/18 05:45 Creatinine 1.05 mg/dL (0.55-1.02) H 11/05/18 05:45 Est GFR (MDRD) Af Amer > 60 (>60) 11/05/18 05:45 Est GFR (MDRD) Non-Af 55 (>60) L 11/05/18 05:45 Glucose 100 mg/dL (65-99) H 11/05/18 05:45 Calcium 8.9 mg/dL (8.5-10.1) 11/05/18 05:45 Corrected Calcium 9.8 mg/dL (8.5-10.1) 11/05/18 05:45 Magnesium 1.6 mg/dL (1.7-2.9) L 11/04/18 17:40 Total Bilirubin 0.30 mg/dL (0.2-1.0) 11/05/18 05:45 AST 22 Units/L (15-37) 11/05/18 05:45 ALT 22 Units/L (12-78) 11/05/18 05:45 Alkaline Phosphatase 102 Units/L (46-116) 11/05/18 05:45 Creatine Kinase 95 Units/L (26-192) 11/04/18 19:31 CK-MB (CK-2) < 1.0 ng/mL (0-4.0) 11/04/18 19:31 CK/CKMB % Calc 1.1 % (<4) 11/04/18 19:31 Troponin I 0.13 ng/mL (0-1.5) 11/04/18 19:31 Total Protein 6.3 g/dL (6.4-8.2) L 11/05/18 05:45 Albumin 2.9 g/dL (3.4-5.0) L 11/05/18 05:45 Globulin 3.4 g/dL (2.5-4.5) 11/05/18 05:45 Albumin/Globulin Ratio 0.9 Ratio (1.1-2.1) L 11/05/18 05:45
[2018-11-04 20:40] LABS: CKMB % 1.1 % (<4); CREATINE KINASE 95 Units/L (26-192); CREATINE KINASE MB < 1.0 ng/mL (0-4.0); TROPONIN I 0.13 ng/mL (0-1.5)
--- NOTE | 2018-11-04 20:50 | RAD ---
AP Chest Indication:Left-sided chest pain Comparison:None available Findings: The trachea is midline. The cardiac silhouette is unremarkable. Left chest wall pacemaker is unchanged in positioning. The lungs are clear without focal infiltrate or effusion. Moderate right and mild left sided glenohumeral joint osteoarthrosis. IMPRESSION: 1. No acute cardiopulmonary abnormality. Reported By:
--- NOTE | 2018-11-04 23:29 | CT ---
CTA chest with contrast per pulmonary embolism protocol Indication:Left-sided chest pain Comparison: 03/16/2017 Technique: Multiple axial images of the chest were obtained from the thoracic inlet to the upper abdomen after the administration of IV contrast.Coronal and Sagittal MIP images were also provided. Dose reduction techniques including automated exposure control (AEC) and adjustment of mA and kV were utilized. Findings: No central or segmental pulmonary arterial filling defect is identified. There is normal caliber of the pulmonary artery without CT evidence or right heart strain. The thyroid gland is unremarkable. Heart size is within normal limits without pericardial effusion. Moderate calcified atherosclerotic disease of the coronary arteries the thoracic aorta is normal in caliber and configuration with scattered calcified atherosclerotic disease. Small amount of fluid is noted within the pericardial recess. Subsegmental atelectasis is noted within the medial right lower lobe. Mild peribronchial thickening and opacity within the left lower lobe represents either subsegmental atelectasis or developing bronchitis. There is also subsegmental atelectasis within the dependent lingula. No focal airspace consolidation, nodule or mass identified. The central airways are clear. No pleural effusion or pneumothorax. Moderate elevation of the left hemidiaphragm. No acute osseous abnormality. Visualized upper abdomen and osseous structures are without acute abnormality. IMPRESSION: 1. No PTE identified. 2. Mild peribronchial thickening within the left lower lobe is suspected to represent subsegmental atelectasis in the setting of left hemidiaphragm elevation; however a mild acute bronchitis is also a consideration for which clinical correlation is needed. 3. Refer to above for chronic, incidental findings. Reported By:
[2018-11-04] MEDS: MORPHINE SULFATE INJ 4 MG IVP PRN (23:34)
[2018-11-04] MEDS ORDERED: PROMETHAZINE PO PRN (23:48)
[2018-11-05] MEDS ORDERED: ZOFRAN TAB 4 MG ONE (01:28)
[2018-11-05] MEDS: ZOFRAN TAB 4 MG PO PRN ×3 (01:29→21:19)
[2018-11-05 01:45] VITALS: BMI 32.9
[2018-11-05 06:24] LABS: BASOPHILS % (AUTO) 1.1 % (0.2-1.0); EOSINOPHILS # (AUTO) 0.2 x10^3/uL (0.0-0.2); EOSINOPHILS % (AUTO) 7.8 % (0.9-2.9); HEMATOCRIT 30.8 % (36.0-47.0); HEMOGLOBIN 10.6 g/dL (12.0-16.0); LYMPHOCYTES # (AUTO) 1.2 X10^3/uL (1.3-2.9); LYMPHOCYTES % (AUTO) 49.6 % (21.0-51.0); MEAN CORPUSCULAR HEMOGLOBIN 29.9 pg (27.0-34.0); MEAN CORPUSCULAR HGB CONC 34.4 g/dL (33.0-35.0); MEAN PLATELET VOLUME 8.9 fL (7.4-11.0); MONOCYTES # (AUTO) 0.2 x10^3/uL (0.3-0.8); MONOCYTES % (AUTO) 6.8 % (0.0-13.0); NEUTROPHILS # (AUTO) 0.9 x10^3/uL (2.2-4.8); NEUTROPHILS % (AUTO) 34.7 % (42.0-75.0); PLATELET COUNT 114 X10^3/uL (150.0-450.0); RED BLOOD COUNT 3.54 X10^6/uL (3.5-5.4); RED CELL DISTRIBUTION WIDTH 14.4 % (11.6-16.5); WHITE BLOOD COUNT 2.5 X10^3/uL (3.6-10.0)
[2018-11-05 06:35] LABS: ALANINE AMINOTRANSFERASE 22 Units/L (12-78); ALBUMIN 2.9 g/dL (3.4-5.0); ALKALINE PHOSPHATASE 102 Units/L (46-116); ASPARTATE AMINO TRANSFERASE 22 Units/L (15-37); BLOOD UREA NITROGEN 11 mg/dL (7-18); CALCIUM 8.9 mg/dL (8.5-10.1); CARBON DIOXIDE 31.4 mmol/L (21-32); CHLORIDE 111 mmol/L (98-107); COR CA(FOR HYPOALB) 9.8 mg/dL (8.5-10.1); CREATININE 1.05 mg/dL (0.55-1.02); SODIUM 146 mmol/L (136-145); TOTAL PROTEIN 6.3 g/dL (6.4-8.2); eGFR NON BLACK RACES 55 (>60)
[2018-11-05] MEDS: CARAFATE PO SCH ×4 (07:01→21:20)
[2018-11-05] MEDS: SYNTHROID 100 mcg TAB PO SCH (07:01)
[2018-11-05 07:54] LABS: CKMB % 1.4 % (<4); CREATINE KINASE MB 1.1 ng/mL (0-4.0); TROPONIN I 0.13 ng/mL (0-1.5)
[2018-11-05] MEDS ORDERED: SYNTHROID 75 mcg TAB PO SCH (09:00)
[2018-11-05] MEDS ORDERED: ISOSORBIDE DINITRATE 10 MG PO SCH (09:00)
[2018-11-05] MEDS ORDERED: PATIENT'S HOME MEDICATION (Levocetirizine [Levocetirizine] 5 MG) PO SCH (09:00)
[2018-11-05] MEDS: BUSPAR PO SCH ×2 (09:58→21:19)
[2018-11-05] MEDS: ZANTAC PO SCH (09:58)
[2018-11-05] MEDS: LINZESS PO SCH (09:58)
[2018-11-05] MEDS: LASIX PO SCH (09:59)
[2018-11-05] MEDS: COZAAR PO SCH (09:59)
[2018-11-05] MEDS: NexIUM PO SCH (09:59)
[2018-11-05] MEDS: ZyrTEC TAB 10 MG PO SCH (09:59)
[2018-11-05] MEDS: ISOSORBIDE DINITRATE PO SCH ×2 (10:00→21:20)
[2018-11-05] MEDS: PHENERGAN TAB 25 MG PO PRN (10:04)
[2018-11-05] MEDS: LOVENOX INJ 40 MG SYR SC SCH (10:04)
--- NOTE | 2018-11-05 10:55 | DR.H&P ---
H&P - History & Physical for Day of: H&P Date: 11/04/18 - Chief Complaint Chief Complaint: LEFT SIDE CHEST AND SHOULER PAIN - History of Present Illness History of Present Illness: 68 [facility] ER ADMISSION AFTER PRESENTING WITH CO CHEST PAIN, LEFT SHOULDER PAIN. PT HAS HX OF COPD, HTN. 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 PT STATES SHE RECENTLY HAD "FLUID" AROUND HER HEART AND WAS IN HOSPITAL IN [place]. PT HAD CTA OF CHEST IN ER. ADMITTED FOR EVALUATION OF CP, R/O AL, RESP THERAPY. - Past Medical History Past Medical History: Arthritis, CHF, Coronary Artery Disease, Hypertension, Hypothyroidism - Past Surgical History Surgical History: Appendectomy, Cholecystectomy, Ortho Surgery - Family History Family Medical History: Coronary Artery Disease, Hypertension - Social History Does patient currently use any type of tobacco product: Yes Have you used tobacco products in the last 12 months: Yes Type of Tobacco Use: Cigarettes How many years tobacco product used: 40 Does any household member use tobacco: Yes Alcohol Use: None Drug Use: None - Medications Home Medications: tramadol Adverse Reaction (Verified 03/05/17 13:21) CONTINUE taking the following medications levocetirizine 5 mg PO DAILY 11/04/18 [History] sucralfate 1 g PO QID 11/04/18 [History] - Review of Systems Constitutional: Weakness Eyes: No Symptoms Reported ENT: No Symptoms Reported Respiratory: Shortness of Breath, SOB with Excertion Cardiovascular: Chest Pain Gastrointestinal: No Symptoms Reported Genitourinary: No Symptoms Reported Musculoskeletal: No Symptoms Reported Skin: No Symptoms Reported Neurological: Weakness - Physical Exam Vital Signs: Temperature 97.3 F Pulse Rate [Right Brachial] 103 Pulse Rate [Radial] 88 Pulse Rate [Apical] 69 Pulse Rate 79 Respiratory Rate 18 Blood Pressure [Right Arm] 85/46 Blood Pressure [Left Arm] 107/55 Blood Pressure 103/56 O2 Sat by Pulse Oximetry 96 Oriented: Normal Eyes: Normal Ear: Normal Nose: Normal Throat: Normal Respiratory: RLL Diminished, LML Diminished, LLL Diminished Cardiovascular: Normal : Normal Auscultation: Bowel Sounds: Normal Palpation: Normal Tenderness: Normal Skin: Decreased Turgur Musculoskeletal: Left, Shoulder, Back:Lumbar Psychiatric: Anxiety Affect: Anxious Speech Pattern: Clear, Appropriate - Assessment/Plan (1) Chest pain Qualifiers: Chest pain type: other chest pain Qualified Code(s): R07.89 - Other chest p ain; R07.8 - Other chest pain Status: Acute Plan: SERIAL CE AND EKGS, BP CONTROL. RESP CONSULT, RESP THERAPY. VERIFY HOME MEDICATIONS. CTA CHEST IN ER, SUPPLEMENTAL O2. STRICT I & OS (2) COPD (chronic obstructive pulmonary disease) Qualifiers: COPD type: COPD with acute exacerbation Qualified Code(s): J44.1 - Chronic obstructive pulmonary disease with (acute) exacerbation Status: Acute (3) Hypertension Status: Acute (4) Hypokalemia Status: Acute - Allergies Allergies/Adverse Reactions: Allergies Allergy/AdvReac Type Severity Reaction Status Date / Time tramadol AdvReac Verified 03/05/17 13:21
[2018-11-05 12:56] LABS: CKMB % 1.7 % (<4); CREATINE KINASE MB 1.1 ng/mL (0-4.0); TROPONIN I 0.14 ng/mL (0-1.5)
[2018-11-05] MEDS: XOPENEX 1.25 MG/3 ML NEBULE NEB SCH (20:38)
[2018-11-05] MEDS: SOLU-Medrol 40 MG VIAL IVP SCH (21:12)
[2018-11-05] MEDS: CRESTOR TAB 10 MG PO SCH (21:15)
[2018-11-05] MEDS: REQUIP PO SCH (21:22)
[2018-11-05] MEDS: NORCO 5/325 MG TAB PO PRN (21:37)
[2018-11-06] MEDS: NORCO 5/325 MG TAB PO PRN ×3 (02:55→20:59)
[2018-11-06] MEDS: XOPENEX 1.25 MG/3 ML NEBULE NEB SCH ×3 (05:00→21:19)
[2018-11-06] MEDS: CARAFATE PO SCH ×4 (06:02→20:57)
[2018-11-06] MEDS: ZOFRAN TAB 4 MG PO PRN ×3 (06:02→20:59)
[2018-11-06] MEDS: SYNTHROID 100 mcg TAB PO SCH (06:02)
[2018-11-06 06:07] LABS: BASOPHILS % (AUTO) 0.7 % (0.2-1.0); EOSINOPHILS % (AUTO) 0.2 % (0.9-2.9); HEMATOCRIT 32.2 % (36.0-47.0); LYMPHOCYTES # (AUTO) 0.4 X10^3/uL (1.3-2.9); LYMPHOCYTES % (AUTO) 30.1 % (21.0-51.0); MEAN CORPUSCULAR HEMOGLOBIN 29.3 pg (27.0-34.0); MEAN CORPUSCULAR HGB CONC 34.1 g/dL (33.0-35.0); MEAN CORPUSCULAR VOLUME 85.9 fL (80.0-100.0); MEAN PLATELET VOLUME 8.8 fL (7.4-11.0); MONOCYTES # (AUTO) 0 x10^3/uL (0.3-0.8); MONOCYTES % (AUTO) 1.6 % (0.0-13.0); NEUTROPHILS % (AUTO) 67.4 % (42.0-75.0); PLATELET COUNT 119 X10^3/uL (150.0-450.0); RED BLOOD COUNT 3.75 X10^6/uL (3.5-5.4); RED CELL DISTRIBUTION WIDTH 14.3 % (11.6-16.5)
[2018-11-06 06:23] LABS: CHOL/HDL RATIO 2.7 (0.0-5.0)
[2018-11-06 06:27] LABS: ALBUMIN 3.1 g/dL (3.4-5.0); CARBON DIOXIDE 27.8 mmol/L (21-32); COR CA(FOR HYPOALB) 9.7 mg/dL (8.5-10.1); CREATININE 1.21 mg/dL (0.55-1.02); TOTAL PROTEIN 6.8 g/dL (6.4-8.2)
[2018-11-06 06:33] LABS: WHITE BLOOD COUNT 1.5 X10^3/uL (3.6-10.0)
[2018-11-06] MEDS: BUSPAR PO SCH ×2 (09:59→20:57)
[2018-11-06] MEDS: ISOSORBIDE DINITRATE PO SCH ×2 (10:00→20:58)
[2018-11-06] MEDS: LASIX PO SCH (10:00)
[2018-11-06] MEDS: LINZESS PO SCH (10:00)
[2018-11-06] MEDS: COZAAR PO SCH (10:00)
[2018-11-06] MEDS: LOVENOX INJ 40 MG SYR SC SCH (10:00)
[2018-11-06] MEDS: ZyrTEC TAB 10 MG PO SCH (10:01)
[2018-11-06] MEDS: ZANTAC PO SCH (10:01)
[2018-11-06] MEDS: SOLU-Medrol 40 MG VIAL IVP SCH (10:01)
[2018-11-06] MEDS: NexIUM PO SCH (10:01)
[2018-11-06 10:56] LABS: CREATINE KINASE 45 Units/L (26-192); CREATINE KINASE MB < 1.0 ng/mL (0-4.0); TROPONIN I 0.12 ng/mL (0-1.5)
[2018-11-06 11:01] LABS: CKMB % 2.2 % (<4)
[2018-11-06] MEDS: PHENERGAN TAB 25 MG PO PRN (11:30)
[2018-11-06] MEDS: NS 1000 ML 1,000 ML IV SCH (11:30)
[2018-11-06] MEDS: MORPHINE SULFATE INJ 4 MG IVP PRN (14:23)
[2018-11-06 16:13] LABS: BASOPHILS % (AUTO) 0.1 % (0.2-1.0); HEMATOCRIT 30.6 % (36.0-47.0); HEMOGLOBIN 10.3 g/dL (12.0-16.0); LYMPHOCYTES # (AUTO) 0.2 X10^3/uL (1.3-2.9); LYMPHOCYTES % (AUTO) 8.4 % (21.0-51.0); MEAN CORPUSCULAR HEMOGLOBIN 29.2 pg (27.0-34.0); MEAN CORPUSCULAR HGB CONC 33.7 g/dL (33.0-35.0); MEAN CORPUSCULAR VOLUME 86.6 fL (80.0-100.0); MEAN PLATELET VOLUME 8.5 fL (7.4-11.0); MONOCYTES # (AUTO) 0 x10^3/uL (0.3-0.8); MONOCYTES % (AUTO) 0.9 % (0.0-13.0); NEUTROPHILS # (AUTO) 2.6 x10^3/uL (2.2-4.8); NEUTROPHILS % (AUTO) 90.6 % (42.0-75.0); PLATELET COUNT 128 X10^3/uL (150.0-450.0); RED BLOOD COUNT 3.53 X10^6/uL (3.5-5.4); RED CELL DISTRIBUTION WIDTH 14.3 % (11.6-16.5); WHITE BLOOD COUNT 2.8 X10^3/uL (3.6-10.0)
[2018-11-06 16:40] LABS: BAND NEUTROPHILS % 4 % (0-10); PLATELET MORPHOLOGY COMMENT NORMAL (NORMAL)
[2018-11-06] MEDS: CRESTOR TAB 10 MG PO SCH (20:57)
[2018-11-06] MEDS: REQUIP PO SCH (20:58)
[2018-11-07] MEDS: NS 1000 ML 1,000 ML IV SCH ×2 (01:41→04:54)
[2018-11-07] MEDS: PHENERGAN TAB 25 MG PO PRN (01:42)
[2018-11-07] MEDS: NORCO 5/325 MG TAB PO PRN (04:54)
[2018-11-07] MEDS: ZOFRAN TAB 4 MG PO PRN (04:54)
[2018-11-07] MEDS: XOPENEX 1.25 MG/3 ML NEBULE NEB SCH (05:08)
[2018-11-07] MEDS: CARAFATE PO SCH (06:03)
[2018-11-07] MEDS: SYNTHROID 100 mcg TAB PO SCH (06:04)
[2018-11-07 06:09] LABS: BASOPHILS % (AUTO) 0.3 % (0.2-1.0); EOSINOPHILS % (AUTO) 0.1 % (0.9-2.9); HEMATOCRIT 29.9 % (36.0-47.0); HEMOGLOBIN 10.2 g/dL (12.0-16.0); LYMPHOCYTES # (AUTO) 0.9 X10^3/uL (1.3-2.9); LYMPHOCYTES % (AUTO) 32.5 % (21.0-51.0); MEAN CORPUSCULAR HEMOGLOBIN 29.4 pg (27.0-34.0); MEAN CORPUSCULAR HGB CONC 34.2 g/dL (33.0-35.0); MEAN CORPUSCULAR VOLUME 86.1 fL (80.0-100.0); MEAN PLATELET VOLUME 8.9 fL (7.4-11.0); MONOCYTES # (AUTO) 0.2 x10^3/uL (0.3-0.8); NEUTROPHILS # (AUTO) 1.7 x10^3/uL (2.2-4.8); NEUTROPHILS % (AUTO) 61.1 % (42.0-75.0); PLATELET COUNT 107 X10^3/uL (150.0-450.0); RED BLOOD COUNT 3.47 X10^6/uL (3.5-5.4); RED CELL DISTRIBUTION WIDTH 14.3 % (11.6-16.5); WHITE BLOOD COUNT 2.7 X10^3/uL (3.6-10.0)
[2018-11-07 06:44] LABS: ALANINE AMINOTRANSFERASE 22 Units/L (12-78); ALBUMIN 3.2 g/dL (3.4-5.0); ALKALINE PHOSPHATASE 107 Units/L (46-116); ASPARTATE AMINO TRANSFERASE 17 Units/L (15-37); BLOOD UREA NITROGEN 12 mg/dL (7-18); CALCIUM 9.1 mg/dL (8.5-10.1); CARBON DIOXIDE 27.4 mmol/L (21-32); CHLORIDE 109 mmol/L (98-107); COR CA(FOR HYPOALB) 9.7 mg/dL (8.5-10.1); CREATININE 1.04 mg/dL (0.55-1.02); SODIUM 145 mmol/L (136-145); TOTAL PROTEIN 6.8 g/dL (6.4-8.2); eGFR NON BLACK RACES 56 (>60)
[2018-11-07 08:28] VITALS: BP 112/55
[2018-11-07] MEDS ORDERED: ZITHROMAX TAB 250 MG PO SCH (09:00)
[2018-11-07] MEDS: LINZESS PO SCH (09:33)
[2018-11-07] MEDS: ZANTAC PO SCH (09:33)
[2018-11-07] MEDS: LOVENOX INJ 40 MG SYR SC SCH (09:34)
[2018-11-07] MEDS: ZyrTEC TAB 10 MG PO SCH (09:34)
[2018-11-07] MEDS: LASIX PO SCH (09:34)
[2018-11-07] MEDS: COZAAR PO SCH (09:35)
[2018-11-07] MEDS: ISOSORBIDE DINITRATE PO SCH (09:35)
[2018-11-07] MEDS: NexIUM PO SCH (09:35)
[2018-11-07] MEDS: BUSPAR PO SCH (09:35)
== END 2018-11-07 13:30 | disposition home or self-care (01) | DRG 313 ==
LOC: ER 17:04 → MED/SURG 17:04
PROVIDERS: ADMIT Internal Medicine; ATTEND Internal Medicine
DX: I49.5 Sick sinus syndrome; E87.6 Hypokalemia; I97.190 Other postprocedural cardiac functional disturbances following cardiac surgery; R79.1 Abnormal coagulation profile; J44.1 Chronic obstructive pulmonary disease with (acute) exacerbation; J20.8 Acute bronchitis due to other specified organisms; I10 Essential (primary) hypertension; Z95.0 Presence of cardiac pacemaker; R07.89 Other chest pain; M19.90 Unspecified osteoarthritis, unspecified site; M25.512 Pain in left shoulder
CPT/HCPCS: 36415; 71010; 71045; 71275; 80053; 80061; 82550; 82553; 83735; 84484; 85025; 85378; 85610; 85730; 93005; 94640; 94760; 96365; 96374; 99284; Q0169; G0378; J1650; J2270; J2920; J7030; J8499; S0119; S0181